=== PATIENT | female | born 1940 | race Caucasian/White ===

== ENCOUNTER → 2018-04-13 09:22 | Outpatient (CLI) | payer OTHER, SELFPAY ==
[2018-04-13 10:19] LABS: Hematocrit 42.3 % (36-46); Hemoglobin 14.2 g/dL (12.0-16.0); Mean Corpuscular HGB Conc 33.6 % (30-36); Mean Corpuscular Hemoglobin 27.7 PG (26-34); Mean Corpuscular Volume 82.3 fL (80-100); Platelet Count 273 X10^3/uL (150-400); Red Blood Cell Count 5.14 X10^6/uL (4.0-5.2); Red Cell Distribution Width 14.7 % (11.6-14.8); White Blood Cell Count 8.7 X10^3/uL (4.5-11.0)
[2018-04-13 10:47] LABS: Alanine Aminotransferase 24 IU/L (9-52); Albumin 4.2 g/dL (3.5-5.0); Albumin Globulin Ratio 1.4 (1.0-2.8); Alkaline Phosphatase 87 U/L (38-126); Aspartate Aminotransferase 22 IU/L (14-36); BUN Creatinine Ratio 14.4 (6-22); Bilirubin Total 0.5 mg/dL (0.2-1.3); Blood Urea Nitrogen 13 mg/dL (7-17); Calcium 9.7 mg/dL (8.4-10.2); Carbon Dioxide 27 mmol/L (22-32); Chloride 107 mmol/L (98-107); Cholesterol 163 mg/dL (140-199); Estimated Glomerular Filt Rate > 60.0 mL/min (>60); Globulin 3.1 g/dL (1.7-4.1); Glucose 109 mg/dL (80-110); HDL Cholesterol 48 mg/dL (40-60); HEMOLYSIS < 15 (0-50); LDL Cholesterol Calculated 81 mg/dL (<100); Sodium 146 mmol/L (137-145); Total Protein 7.3 g/dL (6.3-8.2); Triglycerides 172 mg/dL (35-150)
[2018-04-13 11:05] LABS: Neutrophils Absolute Manual 5829 /uL (3000-5900); RBC Morphology Normal Morphology; Total Cells Counted 100
[2018-04-13 11:10] LABS: Thyroid Stimulating Hormone 2.24 uIU/mL (0.47-4.68)
[2018-04-13 16:33] LABS: Creatinine Urine Random 186.9 mg/dL
[2018-04-13 16:37] LABS: Microalbumi Creatinin Ratio Ur 10.1 ug/mg CR (<30); Microalbumin Urine Random 1.9 mg/dL (0-1.6)
== END ==
PROVIDERS: PCP Family Medicine; Visit Provider Family Medicine
DX: E78.5 Hyperlipidemia, unspecified (principal); I10 Essential (primary) hypertension; J44.9 Chronic obstructive pulmonary disease, unspecified
CPT/HCPCS: 36415; 80053; 80061; 82043; 82570; 84443; 85025

== ENCOUNTER → 2018-07-20 11:53 | Outpatient (CLI) | payer OTHER, SELFPAY ==
[2018-07-20 13:49] LABS: Vitamin B12 652 pg/mL (239-931)
== END ==
PROVIDERS: PCP Family Medicine; Visit Provider Family Medicine
DX: R20.2 Paresthesia of skin (principal)
CPT/HCPCS: 36415; 82607

== ENCOUNTER → 2018-08-28 10:37 | Outpatient (CLI) | payer OTHER, SELFPAY ==
--- NOTE | 2018-08-28 10:40 | DI.MG.S_ITS ---
BILATERAL DIGITAL SCREENING MAMMOGRAM 3D/2D WITH CAD: 08/28/2018 CLINICAL: Baseline exam. Routine screening. No prior exams were available for comparison. The tissue of both breasts is predominantly fatty. Current study was also evaluated with a Computer Aided Detection (CAD) system. No significant masses, calcifications, or other findings are seen in either breast. IMPRESSION: NEGATIVE There is no mammographic evidence of malignancy. A 1 year screening mammogram is recommended. This exam was interpreted at Station ID: [id number]. NOTE: For mammograms, a report in lay terms will be sent to the patient. Approximately 15% of breast malignancies will not be visualized mammographically. In the management of a palpable breast mass, a negative mammogram must not discourage biopsy of a clinically suspicious lesion. Electronically Signed By: Sepideh worley/armen:08/28/2018 12:07:50 letter sent: Normal Exam ACR BI-RADS Category 1: Negative [id number]
== END ==
PROVIDERS: PCP Family Medicine; Visit Provider Family Medicine
DX: Z12.31 Encounter for screening mammogram for malignant neoplasm of breast (principal)
CPT/HCPCS: 77063; 77067

== ENCOUNTER → 2018-11-05 08:28 | Outpatient (CLI) | payer OTHER, SELFPAY ==
--- NOTE | 2018-11-05 | DI.MRI.S_ITS ---
PROCEDURE: MR LUMBAR SPINE WO CON INDICATIONS: Radiculopathy, lumbar region TECHNIQUE: Noncontrast sagittal T1 spin echo and T2 fast echo, sagittal STIR, axial T1 and T2 fast spin echo through the lumbar spine. In cases with scoliosis, additional coronal T2 fast spin echo may be performed. COMPARISON: None. FINDINGS: Image quality: Excellent. Alignment and Curvature: There is trace L1-L2 retrolisthesis. There is trace L3-L4 anterolisthesis. Bones: Postsurgical changes compatible with L3-L4 posterior and interbody fusion noted. Postsurgical changes compatible with L2 laminectomy noted. No acute vertebral body compression fractures. Spinal Cord: Conus medullaris terminates at the T12 level. Visualized cord demonstrates normal signal and size. Paraspinous Soft Tissues: No paravertebral masses. L1-L2: Loss of disc signal and height. Moderate, diffuse disc bulge. Mild bilateral facet hypertrophy. Mild narrowing of the central canal. Moderate to severe right and moderate left neural foraminal narrowing with slight compression of the exiting right L1 nerve root. L2-L3: Loss of disc signal and height. Moderate, diffuse disc bulge. Moderate bilateral facet hypertrophy. Mild to moderate narrowing of the central canal. Severe bilateral neural foraminal narrowing with compression of the exiting L2 nerve roots. L3-L4: Status post fusion. Moderate bilateral facet hypertrophy. Mild narrowing of central canal. Moderate bilateral neural foraminal narrowing. No neural impingement. L4-L5: Loss of disc signal. Mild, diffuse disc bulge. Moderate bilateral facet hypertrophy. There is a 1.0 x 1.1 x 1.9 cm synovial cyst projecting off the medial margin of the right L4-L5 facet which impinges on the traversing right L5 nerve root. Moderate narrowing of the central canal. Moderate bilateral neural foraminal narrowing. L5-S1: Loss of disc signal and height. Mild diffuse disc bulge. Mild right and moderate left facet hypertrophy. No central stenosis. Moderate bilateral neural foraminal narrowing. No neural impingement. IMPRESSION: 1. Postsurgical changes. 2. Multilevel degenerative disease 3. Multilevel facet arthropathy. 4. Large right L4-L5 facet synovial cyst which impinges upon the right L5 nerve root. Please correlate with clinical data. 5. Moderate L4-L5 central canal narrowing. Mild to moderate L2-L3 central canal narrowing. Mild L1-L2 and L3-L4 central canal narrowing. 6. Severe bilateral L2-L3 neural foraminal narrowing. Moderate to severe right and moderate left L1-L2 neural foraminal narrowing. Moderate bilateral L3-L4, L4-L5 and L5-S1 neural foraminal narrowing. 7. Compression of the exiting right L1 nerve root and the exiting bilateral L2 nerve roots secondary to neural foraminal narrowing. Please correlate clinically. Dictated by: Connie Montelongo MD, PhD on 11/05/2018 at 10:44 Approved by: Connie Montelongo MD, PhD on 11/05/2018 at 10:51
== END ==
PROVIDERS: PCP Family Medicine; Visit Provider Physical Medicine & Rehabilitation
DX: M51.16 Intervertebral disc disorders with radiculopathy, lumbar region (principal); M51.17 Intervertebral disc disorders with radiculopathy, lumbosacral region; M48.061 Spinal stenosis, lumbar region without neurogenic claudication; M48.07 Spinal stenosis, lumbosacral region; M47.26 Other spondylosis with radiculopathy, lumbar region; M47.27 Other spondylosis with radiculopathy, lumbosacral region; Z98.1 Arthrodesis status
CPT/HCPCS: 72148

== ENCOUNTER → 2019-02-12 07:40 | Outpatient (CLI) | payer OTHER, SELFPAY ==
[2019-02-12 08:10] LABS: Add Manual Diff / Slide Review NO; Basophils Absolute Auto 100 /uL (0-100); Basophils Percent Auto 0.8 % (0-2); Eosinophils Absolute Auto 200 /uL (0-450); Eosinophils Percent Auto 2.3 % (2-4); Hematocrit 42.3 % (36-46); Hemoglobin 14.1 g/dL (12.0-16.0); Lymphocytes Absolute Auto 1900 /uL (1100-4500); Lymphocytes Percent Auto 25.5 % (25-40); Mean Corpuscular HGB Conc 33.2 % (30-36); Mean Corpuscular Hemoglobin 28.4 PG (26-34); Mean Corpuscular Volume 85.4 fL (80-100); Monocytes Absolute Auto 500 /uL (0-900); Monocytes Percent Auto 6.8 % (3-14); Neutrophils Absolute Auto 4900 /uL (1500-7000); Neutrophils Percent Auto 64.6 % (50-75); Platelet Count 293 X10^3/uL (150-400); Red Blood Cell Count 4.96 X10^6/uL (4.0-5.2); Red Cell Distribution Width 13.6 % (11.6-14.8); White Blood Cell Count 7.6 X10^3/uL (4.5-11.0)
[2019-02-12 08:36] LABS: Alanine Aminotransferase 25 IU/L (9-52); Albumin 4.1 g/dL (3.5-5.0); Albumin Globulin Ratio 1.4 (1.0-2.8); Alkaline Phosphatase 96 U/L (38-126); Aspartate Aminotransferase 23 IU/L (14-36); BUN Creatinine Ratio 26.3 (6-22); Bilirubin Total 0.5 mg/dL (0.2-1.3); Blood Urea Nitrogen 21 mg/dL (7-17); Calcium 10.2 mg/dL (8.4-10.2); Carbon Dioxide 29 mmol/L (22-32); Chloride 106 mmol/L (98-107); Cholesterol 159 mg/dL (140-199); Estimated Glomerular Filt Rate > 60.0 mL/min (>60); Globulin 2.9 g/dL (1.7-4.1); Glucose 115 mg/dL (80-110); HDL Cholesterol 56 mg/dL (40-60); HEMOLYSIS < 15 (0-50); LDL Cholesterol Calculated 66 mg/dL (<100); Potassium 4.3 mmol/L (3.4-5.1); Sodium 141 mmol/L (137-145); Triglycerides 183 mg/dL (35-150)
[2019-02-12 09:07] LABS: TSH w/ Reflex to FT4 2.18 uIU/mL (0.47-4.68)
== END ==
PROVIDERS: PCP Family Medicine; Visit Provider Family Medicine
DX: E78.5 Hyperlipidemia, unspecified (principal); R53.83 Other fatigue
CPT/HCPCS: 36415; 80053; 80061; 84443; 85025

== ENCOUNTER → 2021-03-19 15:32 | Outpatient (CLI) | payer OTHER, SELFPAY ==
--- NOTE | 2021-03-19 15:35 | DI.RAD.S_ITS ---
PROCEDURE: XR KNEE LT 3V INDICATIONS: Left knee pain TECHNIQUE: 3 views of the knee were acquired. COMPARISON: None. FINDINGS: Moderate to severe osteoarthritic changes in all 3 compartments of the knee, worst in the lateral femorotibial compartment and in the patellofemoral compartment. There is a moderate-sized knee joint effusion. IMPRESSION: Moderate to severe osteoarthritis with a moderate knee joint effusion. Dictated by: Chester Mina M.D. on 03/19/2021 at 16:26 Approved by: Chester Mina M.D. on 03/19/2021 at 16:28
== END ==
PROVIDERS: PCP Family Medicine; Referring Provider Family Medicine; Visit Provider Family Medicine
DX: M25.562 Pain in left knee (principal); M17.12 Unilateral primary osteoarthritis, left knee; M25.462 Effusion, left knee
CPT/HCPCS: 73562

== ENCOUNTER → 2021-04-13 10:10 | Outpatient (CLI) | payer OTHER, SELFPAY ==
[2021-04-13 10:49] LABS: Add Manual Diff / Slide Review NO; Basophils Absolute Auto 0 /uL (0-100); Basophils Percent Auto 0.6 % (0-2); Eosinophils Absolute Auto 200 /uL (0-450); Eosinophils Percent Auto 2.8 % (2-4); Hematocrit 36.2 % (36-46); Hemoglobin 11.7 g/dL (12.0-16.0); Lymphocytes Absolute Auto 2000 /uL (1100-4500); Lymphocytes Percent Auto 29.8 % (25-40); Mean Corpuscular HGB Conc 32.4 % (30-36); Mean Corpuscular Hemoglobin 27.8 PG (26-34); Mean Corpuscular Volume 85.7 fL (80-100); Monocytes Absolute Auto 100 /uL (0-900); Neutrophils Absolute Auto 4400 /uL (1500-7000); Neutrophils Percent Auto 64.8 % (50-75); Platelet Count 285 X10^3/uL (150-400); Red Blood Cell Count 4.22 X10^6/uL (4.0-5.2); Red Cell Distribution Width 15.8 % (11.6-14.8); White Blood Cell Count 6.7 X10^3/uL (4.5-11.0)
[2021-04-13 10:50] LABS: Hemoglobin A1C% w Est Avg Glu 5.3 % (4.0-6.0)
[2021-04-13 11:13] LABS: BUN Creatinine Ratio 28.1 (6-22); Blood Urea Nitrogen 25 mg/dL (7-17); Calcium 10.4 mg/dL (8.4-10.2); Carbon Dioxide 29 mmol/L (22-32); Chloride 107 mmol/L (98-107); Estimated Glomerular Filt Rate > 60.0 mL/min (>60); Glucose 105 mg/dL (80-110); HEMOLYSIS < 15 (0-50); Potassium 4.2 mmol/L (3.4-5.1); Sodium 142 mmol/L (137-145)
[2021-04-13 12:05] LABS: Appearance Urine UA CLOUDY; Bilirubin Urine UA NEGATIVE (NEGATIVE); Color Urine UA YELLOW; Glucose Urine UA NEGATIVE (Negative); Ketones Urine UA NEGATIVE (NEGATIVE); Leukocyte Esterase Urine UA 3+ (NEGATIVE); Nitrite Urine UA POSITIVE (Negative); Occult Blood Urine UA TRACE-INTACT (Negative); Protein Urine UA TRACE (Negative); Urobilinogen Urine UA 0.2 E.U./dL (0.2)
[2021-04-13 12:06] LABS: pH Urine UA 5.5 (4.5-8.0)
[2021-04-13 12:11] LABS: Amorphous Sediment Urine 1+; Bacteria Urine Many (>30); Culture Indicated Urine Specimen Cultured; RBC Urine 0-1/HPF (0-5/HPF); Squamous Epithelial Cell Urine 1-5 /HPF (0-5/HPF); WBC Urine >100/HPF (0-5/HPF)
== END ==
PROVIDERS: PCP Family Medicine; Referring Provider Orthopaedic Surgery; Visit Provider Orthopaedic Surgery
DX: Z01.818 Encounter for other preprocedural examination (principal); R73.9 Hyperglycemia, unspecified; Z01.812 Encounter for preprocedural laboratory examination; R39.0 Extravasation of urine
CPT/HCPCS: 36415; 80048; 81001; 83036; 85025; 87077; 87086; 87186; 93005

== ENCOUNTER 2021-05-26 20:39 | Emergency (ER) | payer OTHER, SELFPAY ==
[2021-05-26] VITALS (12 sets, daily range): BP systolic 142–196; BP diastolic 63–81; PULSE 72–80; RESP 16–27; TEMP 36.5; O2SAT 88–100; BMI 35.2
--- NOTE | 2021-05-26 20:57 | ED_ITS ---
HPI - General Adult General Chief complaint: Shortness of Breath/Dyspnea Stated complaint: Chest Congestion, weakness Time Seen by Provider: 05/26/21 20:57 Source: patient, family and EMS Mode of arrival: EMS Limitations: no limitations History of Present Illness HPI narrative: 80-year-old lady with history of COPD not on home oxygen, osteoarthritis, depression, hypertension, hyperlipidemia who presents with 7 days of general malaise, cough with increasing dyspnea and generalized chest discomfort secondary to the persistent cough. She describes low-grade fevers, mild myalgias. Her daughter, with whom she lives, had similar symptoms that are now resolving. Both mother and daughter are vaccinated for Covid19. She describes some mild abdominal pain, mild nausea but no vomiting. No constipation or diarrhea. She is not complaining of palpitations. She has no skin changes Related Data Home Medications Medication Instructions Recorded Confirmed furosemide 20 mg tablet 20 mg PO DAILY 03/19/21 05/26/21 sertraline 100 mg tablet 25 mg PO DAILY 03/19/21 05/26/21 amlodipine 5 mg tablet 5 mg PO BEDTIME 05/22/21 05/26/21 duloxetine 20 mg capsule,delayed 60 mg PO QAM 05/22/21 05/26/21 release folic acid 1 mg tablet 1 mg PO DAILY 05/22/21 05/26/21 gabapentin 800 mg tablet 800 mg PO BID 05/22/21 05/26/21 ibuprofen 200 mg tablet (Advil) 400 mg PO BID-TID PRN 05/22/21 05/26/21 methotrexate sodium 2.5 mg tablet 20 mg PO QWEEK 05/22/21 05/26/21 vit C 250 mg-vit E 90 mg-zinc 40 1 tab PO QAM 05/22/21 05/26/21 mg-copper 1 [id number] capsule (PreserVision AREDS-2) Previous Rx's Medication Instructions Recorded Disabled Parking #1 ea 11/23/18 atorvastatin 10 mg tablet (Lipitor) 10 mg PO HS #90 tab 04/12/19 lisinopril 40 mg tablet 40 mg PO QDAY #90 tab 04/21/19 Allergies Allergy/AdvReac Type Severity Reaction Status Date / Time codeine [CODEINE] Allergy Intermediate Hives, Unverified 05/22/21 13:12 swelling Penicillins [PENICILLINS] Allergy Intermediate Hives, Unverified 05/22/21 13:12 swelling Sulfa (Sulfonamide AdvReac Intermediate Gastrointestinal Unverified 05/22/21 13:12 Antibiotics) Upset [SULFA (SULFONAMIDE ANTIBIOTICS)] Review of Systems Review of Systems Narrative: Remainder of complete review of systems is otherwise unremarkable except for that included in the HPI. Patient History Medical History COPD (chronic obstructive pulmonary disease) (2015) CTS (carpal tunnel syndrome) (1988) Fractures (2014) Glaucoma (2013) Hayfever (1999) Morbid (severe) obesity due to excess calories Osteoarthritis Retinal detachment (2013) Surgical History Anesthesia History of carpal tunnel repair (1989) History of hip replacement (2003) History of hip replacement (2006) History of hip replacement (2010) History of spinal surgery (2015) History of spinal surgery (2005) Hx of bilateral cataract extraction Status post knee surgery (2003) Status post laminectomy (2005) Family History Brother No problems noted. Brother No problems noted. Father Lung cancer Grandfather No problems noted. Grandmother Heart attack Mother Lung cancer Grandfather No problems noted. Grandmother Heart attack Social History household members: children Smoking Status: Former smoker alcohol intake: current Smoking Status: Former smoker alcohol intake frequency: holidays/special occasions only Substance Use Type: does not use Exam Narrative Exam Narrative: General: Chronically ill-appearing but in no acute distress. Able to give a complete history. Able to speak in full sentences with nasal cannula oxygen at 7 L. HEENT: Moist mucous membranes, normal sclera with reactive pupils, Neck: No JVD, supple Respiratory: Lungs bilateral mild wheeze in all lung jules with no rales no rhonchi. Full and symmetrical air movement Cardiac: Mild tachycardia but otherwise regular rhythm no murmurs no bruits Abdomen: Soft, nontender, good bowel tones, no flank pain Skin: Pale but otherwise Warm and dry, no rashes Neurologic: Globally weak, Grossly neurologically intact with no obvious asymmetries or abnormalities Extremities: No trauma, well perfused Psych: Cooperative, appropriate insight and affect Initial Vital Signs Initial Vital Signs: Vital Signs Temperature 97.7 F 05/26/21 20:50 Pulse Rate 78 05/26/21 20:50 Respiratory Rate 20 05/26/21 20:50 Blood Pressure 142/63 H 05/26/21 20:50 Pulse Oximetry 88 L 05/26/21 20:50 Course Orders Ordered: ED Orders 05/26/21 20:43 COVID19 -Nasal swab/Pre-Proc Stat 05/26/21 20:58 XR chest 1V Stat EKG-12 Lead Stat 05/26/21 21:25 Complete Blood Count AUTO DIFF Stat Comprehensive Metabolic Panel Stat Lactate (Lactic Acid) Stat Lipase Stat Magnesium Stat NT-proBNP (BNP-Adult 18+) Stat Respiratory Panel (Film Array) Stat Troponin I Stat 05/26/21 21:50 Blood Culture Stat 05/26/21 22:00 High flow/High humidity nasal NOW 05/26/21 22:40 Urinalysis and Microscopic Stat Urine Culture Stat Discontinued Medications Acetaminophen (Acetaminophen 325 Mg Tablet) 975 mg PO NOW ONE Stop: 05/26/21 22:32 Last Admin: 05/26/21 22:46 Dose: 975 mg Documented by: PITA Dexamethasone (Dexamethasone 10 Mg/Ml Vial) 6 mg IV NOW ONE Stop: 05/26/21 23:24 Last Admin: 05/26/21 23:48 Dose: 6 mg Documented by: PITA Sodium Chloride (Normal Saline 0.9%) 1,000 mls @ 1,000 mls/hr IV BOLUS ONE Stop: 05/26/21 21:57 Last Infusion: 05/26/21 22:47 Dose: 0 mls/hr Documented by: Admin: 05/26/21 21:15 Dose: 1,000 mls/hr Documented by: PITA POTASSIUM CHLORIDE IN WATER (Potassium Cl 10 Meq/100 Ml Verena) 10 meq in 100 mls @ 100 mls/hr IV Q1H DARCI Stop: 05/27/21 02:44 Last Infusion: 05/27/21 01:58 Dose: 0 mls/hr Documented by: Admin: 05/27/21 00:58 Dose: 100 mls/hr Documented by: Infusion: 05/27/21 00:56 Dose: 0 mls/hr Documented by: Admin: 05/26/21 23:11 Dose: 100 mls/hr Documented by: PITA Ondansetron HCl (Ondansetron 4 Mg/2 Ml Inj) 4 mg IV NOW ONE Stop: 05/26/21 20:59 Last Admin: 05/26/21 21:15 Dose: 4 mg Documented by: PITA Potassium Chloride (Potassium Chloride 20 Meq Tab) 40 meq PO NOW ONE Stop: 05/26/21 22:32 Last Admin: 05/26/21 23:10 Dose: 40 meq Documented by: PITA Vital Signs Vital signs: Vital Signs - 8 hr 05/26/21 20:50 05/26/21 20:51 05/26/21 21:00 Temperature 97.7 F Pulse Rate 78 78 80 Respiratory Rate 20 Blood Pressure 142/63 H 156/68 H Pulse Oximetry 88 L 91 92 05/26/21 21:30 05/26/21 22:00 05/26/21 22:01 Temperature Pulse Rate 74 76 75 Respiratory Rate 27 H 19 26 H Blood Pressure 163/72 H 167/73 H 196/81 H Pulse Oximetry 95 94 100 05/26/21 22:37 05/26/21 22:38 05/26/21 23:00 Temperature Pulse Rate 77 76 72 Respiratory Rate 19 21 Blood Pressure 167/73 H Pulse Oximetry 92 94 99 05/26/21 23:01 05/26/21 23:30 05/26/21 23:31 Temperature Pulse Rate 72 72 72 Respiratory Rate 16 21 22 Blood Pressure 185/72 H 192/76 H Pulse Oximetry 99 99 99 05/27/21 00:00 05/27/21 00:01 05/27/21 00:30 Temperature Pulse Rate 73 73 71 Respiratory Rate 18 19 16 Blood Pressure 162/69 H 180/79 H Pulse Oximetry 100 99 99 05/27/21 00:47 05/27/21 00:48 05/27/21 01:00 Temperature Pulse Rate 73 73 70 Respiratory Rate 19 19 19 Blood Pressure 162/69 H 162/69 H Pulse Oximetry 99 99 99 Medical Decision Making Lab Data Result diagrams: 05/26/21 21:25 05/26/21 21:25 Labs: Lab Results 05/26/21 05/26/21 05/26/21 Range/Units 20:43 21:25 21:25 WBC 8.6 (4.5-11.0) X10^3/uL RBC 3.80 L (4.0-5.2) X10^6/uL Hgb 10.6 L (12.0-16.0) g/dL Hct 31.9 L (36-46) % MCV 84.0 (80-100) fL MCH 27.9 (26-34) PG MCHC 33.2 (30-36) % RDW 19.6 H (11.6-14.8) % Plt Count 397 (150-400) X10^3/uL Neut % (Auto) 69.9 (50-75) % Lymph % (Auto) 18.4 L (25-40) % Mclean % (Auto) 11.3 (3-14) % Eos % (Auto) 0.0 L (2-4) % Baso % (Auto) 0.4 (0-2) % Neut # (Auto) 6000 (1718-6178) /uL Lymph # (Auto) 1600 (1972-8590) /uL Mclean # (Auto) 1000 H (0-900) /uL Eos # (Auto) 0 (0-450) /uL Baso # (Auto) 0 (0-100) /uL Sodium 133 L (137-145) mmol/L Potassium 2.6 L* (3.4-5.1) mmol/L Chloride 98 (98-107) mmol/L Carbon Dioxide 29 (22-32) mmol/L BUN 16 (7-17) mg/dL Creatinine 0.85 (0.52-1.04) mg/dL Estimated GFR > 60.0 (>60) mL/min BUN/Creatinine Ratio 18.8 (6-22) Glucose 115 H (80-110) mg/dL Lactate (0.7-2.1) mmol/L Calcium 9.2 (8.4-10.2) mg/dL Magnesium 2.0 (1.6-2.3) mg/dL Total Bilirubin 0.4 (0.2-1.3) mg/dL AST 43 H (14-36) IU/L ALT 32 (<35) IU/L Alkaline Phosphatase 71 (38-126) U/L Troponin I 0.029 (0.01-0.034) ng/mL NT-Pro-B Natriuret Pep 234 (<450) pg/mL Total Protein 6.4 (6.3-8.2) g/dL Albumin 3.5 (3.5-5.0) g/dL Globulin 2.9 (1.7-4.1) g/dL Albumin/Globulin Ratio 1.2 (1.0-2.8) Lipase 79 (23-300) U/L Urine Color Urine Appearance Urine pH (4.5-8.0) Ur Specific [place] (1.000-1.035) Urine Protein (Negative) Urine Glucose (UA) (Negative) g/dL Urine Ketones (NEGATIVE) Urine Occult Blood (Negative) Urine Nitrate (Negative) Urine Bilirubin (NEGATIVE) Urine Urobilinogen (0.2) E.U./dL Ur Leukocyte Esterase (NEGATIVE) Urine RBC (0-5/HPF) Urine WBC (0-5/HPF) Ur Squamous Epith Cells (0-5/HPF) Ur Renal Epithelial Cell (0-1/HPF) Urine Bacteria (None) Ur Culture Indicated? Chlamy pneumoniae PCR (Not Detect) Adenovirus (PCR) (Not Detect) B. pertussis DNA (PCR) (Not Detecte) B.parapertussis DNA PCR (Not Detecte) Coronavirus OC43 (PCR) (Not Detect) Coronavirus HKU1 (PCR) (Not Detect) Coronavirus 229E (PCR) (Not Detect) SARS-CoV-2 (PCR) Positive H (Negative) Coronavirus NL63 (PCR) (Not Detect) Human Metapneumovir PCR (Not Detect) Influenza Type A (PCR) (Not Detect) Influenza Type B (PCR) (Not Detect) M. pneumoniae (PCR) (Not Detect) Parainfluenza 1 (PCR) (Not Detect) Parainfluenza 2 (PCR) (Not Detect) Parainfluenza 3 (PCR) (Not Detect) Parainfluenza 4 (PCR) (Not Detect) RSV (PCR) (Not Detect) Entero/Rhino (PCR) (Not Detect) 05/26/21 05/26/21 05/26/21 Range/Units 21:25 21:25 22:40 WBC (4.5-11.0) X10^3/uL RBC (4.0-5.2) X10^6/uL Hgb (12.0-16.0) g/dL Hct (36-46) % MCV (80-100) fL MCH (26-34) PG MCHC (30-36) % RDW (11.6-14.8) % Plt Count (150-400) X10^3/uL Neut % (Auto) (50-75) % Lymph % (Auto) (25-40) % Mclean % (Auto) (3-14) % Eos % (Auto) (2-4) % Baso % (Auto) (0-2) % Neut # (Auto) (4470-3996) /uL Lymph # (Auto) (8744-5702) /uL Mclean # (Auto) (0-900) /uL Eos # (Auto) (0-450) /uL Baso # (Auto) (0-100) /uL Sodium (137-145) mmol/L Potassium (3.4-5.1) mmol/L Chloride (98-107) mmol/L Carbon Dioxide (22-32) mmol/L BUN (7-17) mg/dL Creatinine (0.52-1.04) mg/dL Estimated GFR (>60) mL/min BUN/Creatinine Ratio (6-22) Glucose (80-110) mg/dL Lactate 1.4 (0.7-2.1) mmol/L Calcium (8.4-10.2) mg/dL Magnesium (1.6-2.3) mg/dL Total Bilirubin (0.2-1.3) mg/dL AST (14-36) IU/L ALT (<35) IU/L Alkaline Phosphatase (38-126) U/L Troponin I (0.01-0.034) ng/mL NT-Pro-B Natriuret Pep (<450) pg/mL Total Protein (6.3-8.2) g/dL Albumin (3.5-5.0) g/dL Globulin (1.7-4.1) g/dL Albumin/Globulin Ratio (1.0-2.8) Lipase (23-300) U/L Urine Color Yellow Urine Appearance Slightly cloudy Urine pH 6.5 (4.5-8.0) Ur Specific [place] 1.015 (1.000-1.035) Urine Protein 1+ H (Negative) Urine Glucose (UA) Negative (Negative) g/dL Urine Ketones Negative (NEGATIVE) Urine Occult Blood Trace-lysed (Negative) Urine Nitrate Positive H (Negative) Urine Bilirubin Negative (NEGATIVE) Urine Urobilinogen 1.0 (0.2) E.U./dL Ur Leukocyte Esterase Trace H (NEGATIVE) Urine RBC None seen (0-5/HPF) Urine WBC 5-10/hpf H (0-5/HPF) Ur Squamous Epith Cells 1-5 /hpf (0-5/HPF) Ur Renal Epithelial Cell 0-1/hpf (0-1/HPF) Urine Bacteria Many (>30) H (None) Ur Culture Indicated? Specimen cultured Chlamy pneumoniae PCR Not detected (Not Detect) Adenovirus (PCR) Not detected (Not Detect) B. pertussis DNA (PCR) Not detected (Not Detecte) B.parapertussis DNA PCR Not detected (Not Detecte) Coronavirus OC43 (PCR) Not detected (Not Detect) Coronavirus HKU1 (PCR) Not detected (Not Detect) Coronavirus 229E (PCR) Not detected (Not Detect) SARS-CoV-2 (PCR) Detected H (Negative) Coronavirus NL63 (PCR) Not detected (Not Detect) Human Metapneumovir PCR Not detected (Not Detect) Influenza Type A (PCR) Not detected (Not Detect) Influenza Type B (PCR) Not detected (Not Detect) M. pneumoniae (PCR) Not detected (Not Detect) Parainfluenza 1 (PCR) Not detected (Not Detect) Parainfluenza 2 (PCR) Not detected (Not Detect) Parainfluenza 3 (PCR) Not detected (Not Detect) Parainfluenza 4 (PCR) Not detected (Not Detect) RSV (PCR) Not detected (Not Detect) Entero/Rhino (PCR) Not detected (Not Detect) Imaging Data Chest x-ray: Radiologist's Impression: FINDINGS:? ? Surgical changes and devices:? None.? ? Lungs and pleura:? Diffuse patchy bilateral airspace opacities are seen.? No definite pleural effusion or pneumothorax. ? Mediastinum:? Mediastinal contours appear normal.? Heart size is normal.? Mild aortic atherosclerotic calcifications. ? Bones and chest wall:? No suspicious bony lesions.? Overlying soft tissues appear unremarkable.? ? IMPRESSION:? Diffuse bilateral airspace opacities are suspicious for pneumonia, including with viral agents such as COVID-19. ? ? Dictated by: Gunner García M.D. on 05/26/2021 at 21:26 ? ? ECG Data Interpretation: Sinus rhythm at a rate of 78 No acute ischemic changes Normal intervals, normal axis MDM Narrative Medical decision making narrative: 80-year-old woman on day 7 of COVID, she is vaccinated. Increasing tachypnea and tachycardia. Oxygen saturations were in the 85-88% range on room air. To the low 90s on 5 L mid 90s on 7 L however still quite tachypneic and tachycardic. She was started on high-flow oxygen and both tachypnea and tachycardia have improved. She does complain about the flow rate at the back of her nose and we have given her some Tylenol. Currently no evidence for bacterial superinfection, congestive heart failure, acute coronary syndrome or surgical abdomen. She will need ICU admission given her high-flow oxygen. She is an excellent candidate for both Decadron and remde sivir. Labs indicate a potassium of 2.6. She is given oral 40 mEqpotassium as well as IV 40 mEq potassium in the emergency department. 11pm care is reviewed with hospital doctor, Julisa Griffiths at [facility] in [place]. They do have an ICU bed available and we will anticipate transfer. At this point waiting to hear from housekeeper supervisor for specific details. 1124 bed is available. ALS transport is being arranged. Will go ahead and start a 2nd IV. She is given 6 mg of IV Decadron in the emergency department but will hold off on remdesivir for the receiving hospital. Findings and expected transfer are reviewed with patient and her daughter. Questions are answered. She is stable for transfer at this time Discharge Plan Departure Patient Disposition: [facility] Clinical Impression: Pneumonia due to 2019 novel coronavirus, Hypokalemia Respiratory failure with hypoxia Qualifiers: Chronicity: acute Qualified Code(s): J96.01 - Acute respiratory failure with hypoxia Prescriptions: No Action furosemide 20 mg tablet 20 mg PO DAILY 0RF Label Comments: Pt takes at bedtime sertraline 100 mg tablet 25 mg PO DAILY 0RF (DME) Disabled Parking Qty: 1 0RF Dose Instruction: As directed Rx Instructions: I find this patient to be medically disabled and qualified for Disabled Parking as indicated, and signed, on the Accompanying Disabled Parking Application for Individuals atorvastatin [Lipitor] 10 mg tablet 10 mg PO HS Qty: 90 2RF Hold Instructions: taking Anti-fungal medication lisinopril 40 mg tablet 40 mg PO QDAY Qty: 90 2RF amlodipine 5 mg Tablet 5 mg PO BEDTIME 0RF methotrexate sodium 2.5 mg Tablet 20 mg PO QWEEK 0RF Label Comments: 10mg bid on Friday gabapentin 800 mg Tablet 800 mg PO BID 0RF ibuprofen [Advil] 200 mg Tablet 400 mg PO BID-TID PRN (Reason: Pain) 0RF folic acid 1 mg Tablet 1 mg PO DAILY 0RF PreserVision AREDS-2 250-90-40-1 mg Capsule 1 tab PO QAM 0RF duloxetine 20 mg capsule,delayed release(DR/EC) 60 mg PO QAM 0RF Referrals: Jordyn Montemayor MD [Primary Care Provider] -
--- NOTE | 2021-05-26 20:58 | DI.RAD.S_ITS ---
PROCEDURE: XR CHEST 1V INDICATIONS: dyspnea TECHNIQUE: One view of the chest was acquired. COMPARISON: None. FINDINGS: Surgical changes and devices: None. Lungs and pleura: Diffuse patchy bilateral airspace opacities are seen. No definite pleural effusion or pneumothorax. Mediastinum: Mediastinal contours appear normal. Heart size is normal. Mild aortic atherosclerotic calcifications. Bones and chest wall: No suspicious bony lesions. Overlying soft tissues appear unremarkable. IMPRESSION: Diffuse bilateral airspace opacities are suspicious for pneumonia, including with viral agents such as COVID-19. Dictated by: Gunner García M.D. on 05/26/2021 at 21:26 Approved by: Gunner García M.D. on 05/26/2021 at 21:28
[2021-05-26 21:15] LABS: COVID19 -Nasal RAPID POSITIVE (Negative)
[2021-05-26] MEDS: SODIUM CHLORIDE 0.9% 1,000 ML 1000 ML IV (21:15)
[2021-05-26] MEDS: ONDANSETRON 4 MG/2 ML INJ IV (21:15)
[2021-05-26 21:35] LABS: Add Manual Diff / Slide Review NO; Basophils Absolute Auto 0 /uL (0-100); Basophils Percent Auto 0.4 % (0-2); Eosinophils Absolute Auto 0 /uL (0-450); Hematocrit 31.9 % (36-46); Hemoglobin 10.6 g/dL (12.0-16.0); Lymphocytes Absolute Auto 1600 /uL (1100-4500); Lymphocytes Percent Auto 18.4 % (25-40); Mean Corpuscular HGB Conc 33.2 % (30-36); Mean Corpuscular Hemoglobin 27.9 PG (26-34); Monocytes Absolute Auto 1000 /uL (0-900); Monocytes Percent Auto 11.3 % (3-14); Neutrophils Absolute Auto 6000 /uL (1500-7000); Neutrophils Percent Auto 69.9 % (50-75); Platelet Count 397 X10^3/uL (150-400); Red Cell Distribution Width 19.6 % (11.6-14.8); White Blood Cell Count 8.6 X10^3/uL (4.5-11.0)
[2021-05-26 21:42] LABS: Lactate (Lactic Acid) 1.4 mmol/L (0.7-2.1)
[2021-05-26 21:44] LABS: Alanine Aminotransferase 32 IU/L (<35); Albumin 3.5 g/dL (3.5-5.0); Albumin Globulin Ratio 1.2 (1.0-2.8); Alkaline Phosphatase 71 U/L (38-126); Aspartate Aminotransferase 43 IU/L (14-36); BUN Creatinine Ratio 18.8 (6-22); Bilirubin Total 0.4 mg/dL (0.2-1.3); Blood Urea Nitrogen 16 mg/dL (7-17); Calcium 9.2 mg/dL (8.4-10.2); Carbon Dioxide 29 mmol/L (22-32); Chloride 98 mmol/L (98-107); Estimated Glomerular Filt Rate > 60.0 mL/min (>60); Globulin 2.9 g/dL (1.7-4.1); Glucose 115 mg/dL (80-110); HEMOLYSIS < 15 (0-50); Lipase 79 U/L (23-300); Sodium 133 mmol/L (137-145); Total Protein 6.4 g/dL (6.3-8.2)
[2021-05-26 21:48] LABS: Potassium 2.6 mmol/L (3.4-5.1)
[2021-05-26 21:55] LABS: NT-proBNP (BNP-Adult 18+) 234 pg/mL (<450); Troponin I 0.029 ng/mL (0.01-0.034)
[2021-05-26] MEDS: ACETAMINOPHEN 325 MG TABLET 975 MG PO (22:46)
[2021-05-26] MEDS: POTASSIUM CHLORIDE 20 MEQ TAB 40 MEQ PO (23:10)
[2021-05-26 23:11] LABS: Bilirubin Urine UA NEGATIVE (NEGATIVE); Color Urine UA YELLOW; Glucose Urine UA NEGATIVE (Negative); Ketones Urine UA NEGATIVE (NEGATIVE); Leukocyte Esterase Urine UA TRACE (NEGATIVE); Nitrite Urine UA POSITIVE (Negative); Occult Blood Urine UA TRACE-LYSED (Negative); Protein Urine UA 1+ (Negative); Specific Gravity Urine UA 1.015 (1.000-1.035)
[2021-05-26] MEDS: POTASSIUM CHLORIDE IN WATER 10 MEQ/100 ML PIGGYBACK 100 MEQ IV (23:11)
[2021-05-26 23:21] LABS: Appearance Urine UA Slightly Cloudy; pH Urine UA 6.5 (4.5-8.0)
[2021-05-26 23:34] LABS: Bacteria Urine Many (>30); Culture Indicated Urine Specimen Cultured; RBC Urine None Seen (0-5/HPF); Renal Epithelial Cells Urine 0-1/HPF (0-1/HPF); Squamous Epithelial Cell Urine 1-5 /HPF (0-5/HPF); WBC Urine 5-10/HPF (0-5/HPF)
[2021-05-26] MEDS: DEXAMETHASONE 10 MG/ML VIAL 6 MG IV (23:48)
[2021-05-26 23:57] LABS: Adenovirus Not Detected (Not Detect)
[2021-05-26 23:58] LABS: Coronavirus 229E Not Detected (Not Detect); Coronavirus HKU1 Not Detected (Not Detect); Coronavirus NL 63 Not Detected (Not Detect); Coronavirus OC43 Not Detected (Not Detect); SARS- CoV-2 Detected (Not Detecte)
[2021-05-26 23:59] LABS: B. parapertussis Not Detected (Not Detecte); Bordetella pertussis Not Detected (Not Detecte); Chlamydophila pneumoniae Not Detected (Not Detect); Human Metapneumovirus Not Detected (Not Detect); Human Rhinovirus/Enterovirus Not Detected (Not Detect); Influenza A Not Detected (Not Detect); Influenza B Not Detected (Not Detect); Mycoplasma pneumoniae Not Detected (Not Detect); Parainfluenza Virus 1 Not Detected (Not Detect); Parainfluenza Virus 2 Not Detected (Not Detect); Parainfluenza Virus 3 Not Detected (Not Detect); Parainfluenza Virus 4 Not Detected (Not Detect); Respiratory Syncytial Virus Not Detected (Not Detect)
[2021-05-27] VITALS: PULSE 73; RESP 18; O2SAT 100
[2021-05-27 00:01] VITALS: BP 162/69; PULSE 73; RESP 19; O2SAT 99
[2021-05-27 00:30] VITALS: BP 180/79; PULSE 71; RESP 16; O2SAT 99
[2021-05-27 00:47] VITALS: BP 162/69; PULSE 73; RESP 19; O2SAT 99
[2021-05-27 00:48] VITALS: BP 162/69; PULSE 73; RESP 19; O2SAT 99
[2021-05-27] MEDS: POTASSIUM CHLORIDE IN WATER 10 MEQ/100 ML PIGGYBACK 100 MEQ IV (00:58)
[2021-05-27 01:00] VITALS: PULSE 70; RESP 19; O2SAT 99
[2021-05-27 19:54] LABS: Acinetobacter baumannii Not Detected (Not Detect); Enterobacteriaceae species Not Detected (Not Detect); Enterococcus species Not Detected (Not Detect); Listeria monocytogenes Not Detected (Not Detect); Methicillin-resistant gene Not Detected (Not Detect); Streptococcus agalactiae (Gr B Not Detected (Not Detect); Streptococcus pneumonia Not Detected (Not Detect); Streptococcus pyogenes (Gr A) Not Detected (Not Detect); Streptococcus species Not Detected (Not Detect)
[2021-05-27 19:55] LABS: Candida albicans Not Detected (Not Detect); Candida glabrata Not Detected (Not Detect); Candida krusei Not Detected (Not Detect); Candida parapsilosis Not Detected (Not Detect); Candida tropicalis Not Detected (Not Detect); E. coli Not Detected (Not Detect); Enterobacter cloacae complex Not Detected (Not Detect); Haemophilus influenzae Not Detected (Not Detect); Neisseria meningitidis Not Detected (Not Detect); Proteus species Not Detected (Not Detect); Pseudomonas aeruginosa Not Detected (Not Detect); Serratia marcescens Not Detected (Not Detect)
[2021-05-27 19:58] LABS: Staphylococcus species Detected (Not Detect)
--- NOTE | 2021-05-27 20:44 | PC.NURSE ---
faxed blood culture results and lab results to [facility] on May 27 @[id number]
== END 2021-05-27 02:03 | disposition short-term general hospital (02) ==
PROVIDERS: Emergency Provider Emergency Medicine; PCP Family Medicine
DX: U07.1 COVID-19 (principal); J12.82 Pneumonia due to coronavirus disease 2019; J96.01 Acute respiratory failure with hypoxia; J44.0 Chronic obstructive pulmonary disease with (acute) lower respiratory infection
CPT/HCPCS: 71045; 80053; 81001; 83605; 83690; 83735; 83880; 84484; 85025; 87040; 87077; 87086; 87150; 87186; 87205; 87633; 87635; 93005; 96361; 96365; 96366; 96375; 99284; 99285; C9803; J1100; J2405

== ENCOUNTER → 2021-06-25 15:03 | Outpatient (CLI) | payer OTHER, SELFPAY ==
[2021-06-25 16:39] LABS: COVID19 -Nasal RAPID Negative (Negative)
== END ==
PROVIDERS: PCP Family Medicine; Visit Provider Physician Assistant
DX: Z20.822 Contact with and (suspected) exposure to COVID-19 (principal)
CPT/HCPCS: 87635

== ENCOUNTER → 2021-07-17 12:10 | Outpatient (CLI) | payer OTHER, SELFPAY ==
--- NOTE | 2021-07-17 12:12 | DI.RAD.S_ITS ---
PROCEDURE: XR CHEST 2V INDICATIONS: s/p COVID, pre-operative clearance TECHNIQUE: 2 views of the chest were acquired. COMPARISON: [facility], CR, XR CHEST 1V, 05/26/2021, 21:04. FINDINGS: Surgical changes and devices: None. Lungs and pleura: Improved aeration of the lungs with minimal indistinctness of the left costophrenic sulcus, which may be secondary to soft tissue attenuation. No pneumothorax. Mediastinum: The cardiac silhouette is upper limits of normal, partially exaggerated by technique. Calcified atheromatous change of the aorta. Bones and chest wall: No suspicious bony abnormalities. Soft tissues appear unremarkable. IMPRESSION: No acute cardiopulmonary abnormality. Dictated by: Keith Greenberg M.D. on 07/17/2021 at 13:10 Approved by: Keith Greenberg M.D. on 07/17/2021 at 13:11
[2021-07-17 12:49] LABS: Add Manual Diff / Slide Review NO; Basophils Absolute Auto 100 /uL (0-100); Basophils Percent Auto 1.1 % (0-2); Eosinophils Absolute Auto 100 /uL (0-450); Eosinophils Percent Auto 2.1 % (2-4); Hematocrit 33.9 % (36-46); Hemoglobin 11.2 g/dL (12.0-16.0); Lymphocytes Absolute Auto 1200 /uL (1100-4500); Lymphocytes Percent Auto 20.4 % (25-40); Mean Corpuscular Hemoglobin 28.6 PG (26-34); Mean Corpuscular Volume 86.7 fL (80-100); Monocytes Absolute Auto 300 /uL (0-900); Monocytes Percent Auto 5.6 % (3-14); Neutrophils Absolute Auto 4200 /uL (1500-7000); Neutrophils Percent Auto 70.8 % (50-75); Platelet Count 320 X10^3/uL (150-400); Red Blood Cell Count 3.91 X10^6/uL (4.0-5.2); Red Cell Distribution Width 19.3 % (11.6-14.8); White Blood Cell Count 5.9 X10^3/uL (4.5-11.0)
[2021-07-17 13:00] LABS: D Dimer 892 ng/mL (<230)
[2021-07-17 13:06] LABS: Alanine Aminotransferase 20 IU/L (<35); Albumin 4.1 g/dL (3.5-5.0); Albumin Globulin Ratio 1.3 (1.0-2.8); Alkaline Phosphatase 85 U/L (38-126); Aspartate Aminotransferase 29 IU/L (14-36); BUN Creatinine Ratio 26.7 (6-22); Bilirubin Total 0.5 mg/dL (0.2-1.3); Blood Urea Nitrogen 24 mg/dL (7-17); Calcium 10.3 mg/dL (8.4-10.2); Carbon Dioxide 26 mmol/L (22-32); Chloride 106 mmol/L (98-107); Estimated Glomerular Filt Rate > 60.0 mL/min (>60); Globulin 3.1 g/dL (1.7-4.1); Glucose 123 mg/dL (80-110); HEMOLYSIS < 15 (0-50); Potassium 3.5 mmol/L (3.4-5.1); Sodium 141 mmol/L (137-145); Total Protein 7.2 g/dL (6.3-8.2)
[2021-07-17 13:14] LABS: NT-proBNP (BNP-Adult 18+) 206 pg/mL (<450)
[2021-07-17 13:18] LABS: Fibrinogen 360 mg/dL (211-428)
[2021-07-17 13:38] LABS: TSH w/ Reflex to FT4 1.17 uIU/mL (0.47-4.68)
== END ==
PROVIDERS: PCP Family Medicine; Referring Provider Family Medicine; Visit Provider Family Medicine
DX: U07.1 COVID-19 (principal); J12.82 Pneumonia due to coronavirus disease 2019; Z01.818 Encounter for other preprocedural examination; R68.89 Other general symptoms and signs
CPT/HCPCS: 36415; 71046; 80053; 83880; 84443; 85025; 85379; 85384; 85610

== ENCOUNTER → 2021-07-31 13:22 | Outpatient (CLI) | payer OTHER, SELFPAY ==
[2021-07-31 15:13] LABS: Add Manual Diff / Slide Review NO; Basophils Absolute Auto 0 /uL (0-100); Basophils Percent Auto 0.8 % (0-2); Eosinophils Absolute Auto 200 /uL (0-450); Eosinophils Percent Auto 2.9 % (2-4); Hematocrit 35.5 % (36-46); Hemoglobin 11.5 g/dL (12.0-16.0); Lymphocytes Absolute Auto 1200 /uL (1100-4500); Lymphocytes Percent Auto 22.3 % (25-40); Mean Corpuscular HGB Conc 32.4 % (30-36); Mean Corpuscular Hemoglobin 27.9 PG (26-34); Mean Corpuscular Volume 86.1 fL (80-100); Monocytes Absolute Auto 400 /uL (0-900); Monocytes Percent Auto 6.6 % (3-14); Neutrophils Absolute Auto 3700 /uL (1500-7000); Neutrophils Percent Auto 67.4 % (50-75); Platelet Count 272 X10^3/uL (150-400); Red Blood Cell Count 4.12 X10^6/uL (4.0-5.2); Red Cell Distribution Width 17.9 % (11.6-14.8); White Blood Cell Count 5.4 X10^3/uL (4.5-11.0)
[2021-07-31 15:31] LABS: D Dimer 1720 ng/mL (<230)
== END ==
PROVIDERS: PCP Family Medicine; Referring Provider Family Medicine; Visit Provider Family Medicine
DX: U07.1 COVID-19 (principal); J12.82 Pneumonia due to coronavirus disease 2019
CPT/HCPCS: 36415; 85025; 85379

== ENCOUNTER → 2021-08-01 12:05 | Outpatient (CLI) | payer OTHER, SELFPAY ==
--- NOTE | 2021-08-01 12:06 | DI.CT.S_ITS ---
PROCEDURE: CT ANGIO CHEST PE PROTOCOL INDICATIONS: elevated d-dimer, SOB TECHNIQUE: After the administration of intravenous contrast, 2 mm thick sections acquired from the pulmonary apices to the posterior costophrenic angles. 3-dimensional maximum intensity projection (MIP) coronal and sagittal reformats were then acquired through the thorax. For radiation dose reduction, the following was used: automated exposure control, adjustment of mA and/or kV according to patient size. COMPARISON: None. FINDINGS: Image quality: Excellent. Pulmonary arteries: Central pulmonary arteries are normal in size. There is pulmonary embolus involving the anterior basal segment right lower lobe pulmonary artery. Reference image 83/5. There is also right middle lobe and lateral segment right middle lobe pulmonary embolus. Reference image 71/5. No central pulmonary emboli. Lungs and pleura: Minimal patchy bilateral ground-glass opacities, nonspecific, possibly secondary to submaximal pulmonary expansion.. No pleural effusions or pneumothorax. Central and peripheral airways are patent. Mediastinum: Mild cardiomegaly. Small pericardial effusion. Moderate to severe coronary artery calcifications. No mediastinal or hilar adenopathy. Thoracic aorta is normal in caliber and enhancement. Esophagus is normal in caliber, without hiatal hernia. Bones and chest wall: No suspicious bony lesions. Ribs and thoracic spine appear intact throughout. Thyroid gland is somewhat heterogeneous in appearance. No axillary or supraclavicular adenopathy. Abdomen: Visualized upper abdominal solid organs appear normal in the early arterial phase of enhancement. IMPRESSION: 1. Acute small pulmonary emboli in the right middle lobe and right lower lobe distribution. 2. Coronary artery disease, mild cardiomegaly, small pericardial effusion. Dictated by: Abraham Smith M.D. on 08/01/2021 at 12:42 Approved by: Abraham Smith M.D. on 08/01/2021 at 12:50
== END ==
PROVIDERS: PCP Family Medicine; Referring Provider Family Medicine; Visit Provider Family Medicine
DX: U07.1 COVID-19 (principal); J96.01 Acute respiratory failure with hypoxia; I26.99 Other pulmonary embolism without acute cor pulmonale; I25.10 Atherosclerotic heart disease of native coronary artery without angina pectoris; I51.7 Cardiomegaly; I31.3 Pericardial effusion (noninflammatory); J12.82 Pneumonia due to coronavirus disease 2019; R79.89 Other specified abnormal findings of blood chemistry
CPT/HCPCS: 71275; Q9967

== ENCOUNTER → 2021-08-02 14:53 | Outpatient (CLI) | payer OTHER, SELFPAY ==
--- NOTE | 2021-08-02 14:54 | DI.ECHO.S_ITS ---
[facility] +---------+ : : [address] [address] : : : : [id number] : : : : Phone: [phone]+ Echocardiogram Report + + :Name: MITUL EPSTEIN Study Date: 08/02/2021 Height: 26 in : :[facility] ReadingLocation: Weight: 215 lb : : Gender: Female BSA: 1.0 m2 : :: 1940 Age: 80 yrs BP: 160/90 mmHg: :Reason For Study: Lower extremity edema : :Ordering Physician: : :ALMA Performed By: Spencer Bernal : :Referring: BOYD MCKEON : + + Interpretation Summary 1) Normal left ventricular size, wall motion, and systolic function (EF 55- 60%). 2) Normal right ventricular size and function. 3) Diastolic parameters suggest a pseudonormalization pattern, consistent with probable elevated filling pressures. 4) There is mild aortic regurgitation. 5) There is a trivial pericardial effusion noted, located next to the right atrium. 6) Hypertension present during the study (BP 160/90mmHg). 7) No prior Echo available for comparison. Procedure: A two-dimensional transthoracic echocardiogram with color flow and Doppler was performed. There is no prior echocardiogram noted for this patient. Fair image quality. The patient was in normal sinus rhythm during the exam. The patient had occasional PVCs during the exam. Left Ventricle: The left ventricle is normal in size. Left ventricular wall thickness is at the upper limits of normal. The ejection fraction is estimated to be 55-60%. Left ventricular systolic function appears normal without focal wall motion abnormalities. Diastolic parameters suggest a pseudonormalization pattern, consistent with probable elevated filling pressures. Right Ventricle: The right ventricle is normal in size and function. Atria: The left atrium is moderately dilated. The right atrium is mildly dilated. There is no Doppler evidence for an interatrial shunt. Mitral Valve: The mitral valve leaflets appear borderline thickened, but open well. There is mild mitral regurgitation. Aortic Valve: The aortic valve is trileaflet. The aortic valve opens well. The aortic valve is slightly calcified. There is no aortic valve stenosis. There is mild aortic regurgitation. Tricuspid Valve: The tricuspid valve is normal. There is trace tricuspid regurgitation. The right ventricular systolic pressure is estimated to be at least 28 mmHg based on an estimated right atrial pressure of 3 mm Hg. Pulmonic Valve: The pulmonic valve leaflets are thin and pliable; valve motion is normal. There is a trace or physiologic amount of pulmonic regurgitation. Great Vessels: The aortic root is normal size. The ascending aorta is at the upper limits of normal in size. The aortic arch is normal in size. The IVC is of normal diameter and collapses greater than 50% with a sniff. This suggests a low right atrial pressure of 3 mm Hg. Pericardium/ Pleura There is an anterior echo-free space consistent with a fat pad. There is a trivial pericardial effusion noted. There is no pleural effusion. MMode/2D Measurements & Calculations LVIDd: 4.8 cm LVOT diam: 2.2 cm LVIDs: 2.9 cm Ao root diam: 3.3 cm FS: 39.6 % asc Aorta Diam: 3.5 cm IVSd: 1.0 cm Ao Arch Diam (Prox Trans): 1.6 cm LVPWd: 1.0 cm LV mata. diameter/BSA (cm/m^2): 4.6 LV sys. diameter/BSA (cm/m^2): 2.8 LA A2 area: 20.9 cm2 RA long axis: 5.9 cm LA A4 area: 19.0 cm2 IVC diam: 1.4 cm LA length (vol): 6.1 cm LA vol: 55.3 ml LA vol index: 52.7 ml/m2 LVLs ap4: 6.0 cm LVLd ap2: 7.4 cm LVLs ap2: 6.2 cm TAPSE_phl: 2.1 cm Doppler Measurements & Calculations Ao V2 max: 154.0 cm/sec LVOT Max Len: 94.2 cm/sec Ao V2 mean: 113.0 cm/sec LV V1 max P.5 mmHg Ao max P.0 mmHg LV V1 VTI: 20.0 cm Ao mean P.0 mmHg DECLAN(I,D): 2.2 cm2 Ao V2 VTI: 34.9 cm DECLAN(V,D): 2.3 cm2 sev ratio: 0.57 DECLAN indexed to BSA (cm^2/m^2): 2.1 MV E max len: 84.8 cm/sec TR max len: 248.4 cm/sec MV A max len: 118.0 cm/sec TR max P.7 mmHg MV E/A: 0.72 PA V2 max: 62.0 cm/sec Med Peak E' Len: 6.1 cm/sec PA V2 mean: 48.1 cm/sec E/E' med: 13.9 PA mean P.0 mmHg Lat Peak E' Len: 5.3 cm/sec PA pr(Accel): 44.4 mmHg E/E' lat: 15.9 E/e' average: 14.9 MV dec time: 0.28 sec SV(LVOT): 76.0 ml AV VR_phl: 0.61 DECLAN(VTI)/BSA_phl: 2.1 MV P1/2t-pr_phl: 83.0 msec Reading Physician:05:04 PM
== END ==
PROVIDERS: PCP Family Medicine; Referring Provider Family Medicine; Visit Provider Family Medicine
DX: I08.0 Rheumatic disorders of both mitral and aortic valves (principal); R60.0 Localized edema
CPT/HCPCS: 93306

== ENCOUNTER → 2021-11-26 12:26 | Outpatient (CLI) | payer OTHER, SELFPAY ==
[2021-11-26 12:57] LABS: Add Manual Diff / Slide Review NO; Basophils Absolute Auto 0 /uL (0-100); Basophils Percent Auto 0.9 % (0-2); Eosinophils Absolute Auto 100 /uL (0-450); Eosinophils Percent Auto 2.5 % (2-4); Hematocrit 29.3 % (36-46); Hemoglobin 9.6 g/dL (12.0-16.0); Lymphocytes Absolute Auto 1000 /uL (1100-4500); Lymphocytes Percent Auto 19.6 % (25-40); Mean Corpuscular HGB Conc 32.9 % (30-36); Mean Corpuscular Hemoglobin 27.4 PG (26-34); Mean Corpuscular Volume 83.2 fL (80-100); Monocytes Absolute Auto 500 /uL (0-900); Monocytes Percent Auto 9.9 % (3-14); Neutrophils Absolute Auto 3300 /uL (1500-7000); Neutrophils Percent Auto 67.1 % (50-75); Platelet Count 302 X10^3/uL (150-400); Red Blood Cell Count 3.53 X10^6/uL (4.0-5.2); Red Cell Distribution Width 17.4 % (11.6-14.8); White Blood Cell Count 4.9 X10^3/uL (4.5-11.0)
[2021-11-26 13:04] LABS: INR 1.1 (0.9-1.3); Prothrombin Time 11.9 SECONDS (10.1-12.7)
[2021-11-26 13:06] LABS: PTT Partial Thromboplastin Tim 29 SECONDS (26.4-36.2)
[2021-11-26 13:20] LABS: Alanine Aminotransferase 15 IU/L (<35); Albumin Globulin Ratio 1.4 (1.0-2.8); Alkaline Phosphatase 85 U/L (38-126); Aspartate Aminotransferase 23 IU/L (14-36); BUN Creatinine Ratio 21.1 (6-22); Bilirubin Total 0.3 mg/dL (0.2-1.3); Blood Urea Nitrogen 20 mg/dL (7-17); Calcium 9.8 mg/dL (8.4-10.2); Carbon Dioxide 30 mmol/L (22-32); Chloride 107 mmol/L (98-107); Cholesterol 144 mg/dL (140-199); Estimated Glomerular Filt Rate > 60 mL/min (>60); Globulin 2.9 g/dL (1.7-4.1); Glucose 109 mg/dL (80-110); HDL Cholesterol 57 mg/dL (40-60); HEMOLYSIS < 15 (0-50); LDL Cholesterol Calculated 67 mg/dL (<100); Potassium 3.9 mmol/L (3.4-5.1); Sodium 141 mmol/L (137-145); Total Protein 6.9 g/dL (6.3-8.2); Triglycerides 102 mg/dL (35-150)
[2021-11-26 16:03] LABS: Creatinine Urine Random 104.6 mg/dL
[2021-11-26 16:07] LABS: Microalbumin Urine Random 2.2 mg/dL (0-1.6)
== END ==
PROVIDERS: PCP Family Medicine; Referring Provider Family Medicine; Visit Provider Family Medicine
DX: I10 Essential (primary) hypertension (principal); K92.2 Gastrointestinal hemorrhage, unspecified
CPT/HCPCS: 36415; 80053; 80061; 82043; 82570; 85025; 85610; 85730

== ENCOUNTER → 2021-12-05 12:30 | Outpatient (CLI) | payer OTHER, SELFPAY ==
[2021-12-05 18:03] LABS: Hematocrit 29.6 % (36-46); Hemoglobin 9.7 g/dL (12.0-16.0)
[2021-12-05 18:30] LABS: HEMOLYSIS < 15 (0-50); Iron 27 ug/dL (37-170)
[2021-12-05 18:42] LABS: Percent Iron Saturation 7 % (15-50); Total Iron Binding Capacity 395 ug/dL (265-497); Transferrin 299 mg/dL (206-381)
[2021-12-05 19:05] LABS: Ferritin 19 ng/mL (11-264)
== END ==
PROVIDERS: PCP Family Medicine; Referring Provider Family Medicine; Visit Provider Family Medicine
DX: D64.9 Anemia, unspecified (principal)
CPT/HCPCS: 36415; 82728; 83540; 83550; 85014; 85018

== ENCOUNTER → 2022-01-08 13:30 | Outpatient (CLI) | payer OTHER, SELFPAY ==
[2022-01-08 14:07] LABS: COVID19 -Nasal RAPID Negative (Negative)
== END ==
PROVIDERS: PCP Family Medicine; Referring Provider Orthopaedic Surgery; Visit Provider Orthopaedic Surgery
DX: Z20.822 Contact with and (suspected) exposure to COVID-19 (principal)
CPT/HCPCS: 87635; C9803

== ENCOUNTER 2022-01-10 08:44 | Day surgery (SDC) | payer OTHER, SELFPAY ==
[2022-01-08 07:36] VITALS: BMI 34.0
[2022-01-10] VITALS (16 sets, daily range): BP systolic 113–149; BP diastolic 48–72; PULSE 65–88; RESP 15–18; TEMP 35.7–37; O2SAT 92–100; BMI 34.0
[2022-01-10] MEDS: ACETAMINOPHEN 325 MG TABLET 975 MG PO (09:33)
[2022-01-10] MEDS: VANCOMYCIN 1,000 MG/200 ML PIGGYBACK 200 MG IV (10:13)
[2022-01-10] MEDS: LACTATED RINGERS 1,000 ML 42 ML IV ×2 (10:19→13:30)
--- NOTE | 2022-01-10 10:31 | PM.PREOP ---
Pre-operative Note COVID-19 COVID-19 status: Negative Interval Note History & Physical reviewed/Exam performed by Physician: Yes Changes to H&P: No
--- NOTE | 2022-01-10 10:32 | P.OP_ITS ---
Operative Date/Time/Diagnoses Date of procedure: 01/10/22 Time of procedure: 11:30 Pre-op diagnosis: left knee OA Post-op diagnosis: same Procedure & Clinicians Procedure: Left total knee arthroplasty Same procedure as scheduled: Yes Indications: The patient has had progressively worsening left knee pain with radiographic changes consistent with arthritis. Non-operative management has failed and the patient has requested total knee replacement. The risks, benefits and alternatives to surgery were discussed with the patient prior to proceeding. Risks discussed included, but were not limited to, failure to relieve pain, stiffness, infection, nerve damage, deep venous thrombosis, pulmonary embolism, stroke, coma, heart attack, permanent paralysis and , as well as the potential need for eventual revision of the prosthetic. Surgeon: Margo Adams Custom Tailor Apprentice: Aruna Lord Anesthesia Type: General Operative Notes Findings: Severe left knee arthritis, full range of motion, adequate stability Closure Type: primary Specimen(s): none sent Prosthetic devices, grafts, tissues, transplants, or devices: [employer] [facility] bi [employer] size 5 femur, size 4 tibia, 32 x 7-1/2 mm patella, +10 poly Applied: drain(s) Estimated Blood Loss (mL): 250 Blood products transfused: none Tourniquet time (min): 90 Procedure in detail: The patient was seen in the pre-operative area, where the patient identified the left knee as the operative site and this was marked with my initials. The patient received pre-operative antibiotics, and was taken to the operating room and placed on the operative table in the supine position. After satisfactory anesthesia, a time broker out was performed. The left leg was encircled with a tourniquet about the proximal thigh, and the leg was prepared from the toes to the tourniquet with ChloroPrep in the usual fashion and draped through sterile drapes. The leg was elevated and exsanguinated with Eschmark bandage and the jacob rniquet inflated to [250] mmHg pressure. The knee was approached through an approximately 18 cm incision centered over the patella and carried into the knee through a medial parapatellar arthrotomy. A portion of the medial and lateral meniscus was resected. Soft tissue was carefully mobilized around the patella the patella was measured with a caliper. Bone was resected from the patella and the patellar height was reconstituted with up an appropriate sized patellar component. A cover was then placed on the patella. A small amount of additional medial and lateral meniscus was resected. The distal femur was cut at 5?. A [+2] cut was used. It looked like an appropriate distal femoral cut and the cut was made without difficulty. An extramedullary guide was used for the tibial cut. 10 mm was resected off the least affected side.The tibia was prepared. The rotation was assessed. The patient was placed in extension residual medial and lateral meniscus as well as any residual bone was carefully resected. [No] additional tibia was resected. Hemostasis was achieved especially posteriorly. Additional local was injected into the posterior capsule. The extension gap was assessed and additional releases for gap balancing were performed as necessary. It was checked with the gap choral director. The femoral component was trial was placed and the notch was finished. The rotation was assessed and the appropriate size femoral guide was placed on the distal femur and finishing cuts were made. There is no evidence of notching. The anterior, posterior and chamfer cuts were then made. The butter grader ior osteophytes and soft tissues were then removed. The posterior capsule was injected with part of a mixture of 60 ml 0.25% Marcaine mixed with 20 ml Exparel for post operative pain control. The remainder of this mixture was injected into the capsule and subcutaneous tissues during cement curing. The tibial and femoral components were then placed and the knee placed through a range of motion. Range of motion was [0-130], with good stability throughout the range. The trials were then removed, and the tibia was finished. The bone was prepared with pulsatile lavage, and dried with a sponge. Cement was applied and the final prosthetics placed. Excess cement was removed during and after cement curing. A brief Betadine soak was performed. After confirming there was no extruded cement posteriorly, the final tibial insert was placed. The knee was copiously irrigated and the tourniquet deflated. Hemostasis was obtained with the bovie. A drain was placed and brought out superolaterally. The capsule was closed with interrupted nonabsorbable suture. The subcutaneous layer was closed with barbed sutures, and the skin with a running 3-0 V-Lock suture and Surgical glue. An blanco dressing was applied and the patient was taken to recovery having tolerated the procedure well. Complications: none Post-operative Condition: stable Disposition: Acute Care Plan for aftercare: The patient will be maintained on a standard total knee replacement protocol with weight bearing as tolerated. The patient will receive Xarelto and sequential compression devices for DVT prophylaxis. The patient will be discharged home when safe for the home environment.
[2022-01-10] MEDS: CEFAZOLIN 2 GM/20 ML SYRINGE IV ×2 (12:07→20:37)
--- NOTE | 2022-01-10 12:24 | SUR.OPER ---
Addendum entered by Karin Aquino R.N. 01/10/22 12:53: DeMayo positioner used. Original Note: Supine on padded OR bed. Pillow under head, arms secured on padded armboards <90 degree abduction. Safety belt across torso. Non-operative leg secured with tape over blanket over lower leg. Operative leg secured in DeMayo/Tre/Nathe positioner. Foam padded brace at thigh of operative leg.
[2022-01-10] MEDS: SODIUM CHLORIDE IRRIG SOLUTION 250 ML, POVIDONE-IODINE SPONGE STICKS 1 APPLIC IRR (13:29)
[2022-01-10] MEDS: BUPIVACAINE LIPOSOME 266 MG/20 ML VIAL INJ (13:30)
[2022-01-10] MEDS: BUPIVACAINE 0.25% (PF) 60 ML, EPINEPHrine 0.3 MG INJ (13:30)
[2022-01-10] MEDS: fentaNYL 100 MCG/2 ML INJ IV ×2 (14:26→14:56)
[2022-01-10] MEDS: ONDANSETRON 4 MG/2 ML INJ IV ×2 (14:27→19:52)
[2022-01-10] MEDS: HYDROMORPHONE 2 MG INJ IV (14:51)
[2022-01-10] MEDS: LACTATED RINGERS 1,000 ML 100 ML IV (15:35)
--- NOTE | 2022-01-10 16:38 | PC.NURSE ---
Pt arrived @ 1530 Alert/ drowsy Some nausea upon arrival. Left knee VAMSI dsg, ruth wrap & hemavac intact/ patent. IVF LR @ 100cc/hr started as per orders. Infusing into RAC via pump w/o incidence. Call light w/in reach, bed alarm on for pt safety. Continue w/plan of care.
[2022-01-10] MEDS: ATORVASTATIN 20 MG TABLET 10 MG PO (20:34)
[2022-01-10] MEDS: GABAPENTIN 400 MG CAPSULE 800 MG PO (20:35)
[2022-01-10] MEDS: ASPIRIN EC 81 MG TABLET PO (20:35)
[2022-01-10] MEDS: DOCUSATE 100 MG CAPSULE PO (20:35)
[2022-01-10] MEDS: OXYCODONE IR 5 MG TABLET PO (20:35)
[2022-01-10] MEDS: IBUPROFEN 400 MG TABLET PO (20:35)
[2022-01-11] MEDS: LACTATED RINGERS 1,000 ML 100 ML IV (01:42)
[2022-01-11] MEDS: IBUPROFEN 400 MG TABLET PO ×3 (04:44→12:27)
[2022-01-11] MEDS: ACETAMINOPHEN 325 MG TABLET 650 MG PO ×2 (04:44→12:26)
[2022-01-11] MEDS: CEFAZOLIN 2 GM/20 ML SYRINGE IV (04:45)
[2022-01-11 04:48] VITALS: BP 149/63; PULSE 79; RESP 17; TEMP 36.4; O2SAT 93
[2022-01-11 05:35] LABS: Hematocrit 27.3 % (36-46); Hemoglobin 8.7 g/dL (12.0-16.0)
--- NOTE | 2022-01-11 08:50 | PT.IIE ---
Current Diagnoses Unilateral primary osteoarthritis, left knee (01/10/22) Presence of unspecified artificial knee joint (01/10/22) Surgery Performed Operation Date: 01/10/22 10:45 Actual Procedures p Total Knee Arthroplasty(Left) - Margo Adams MD Surgical History (Last Updated 08/02/21 @ 11:04 by Zoey Machado, RN) Anesthesia History of carpal tunnel repair (1989) History of hip replacement (2003) History of hip replacement (2006) History of hip replacement (2010) History of spinal surgery (2015) History of spinal surgery (2005) Hx of bilateral cataract extraction Status post knee surgery (2003) Status post laminectomy (2005) Medical History (Last Updated 01/08/22 @ 07:49 by Zoey Machado RN) COPD (chronic obstructive pulmonary disease) (2015) COVID-19 virus infection (05/2021) CTS (carpal tunnel syndrome) (1988) Fractures (2014) GI bleed (2021) Glaucoma (2013) Hayfever (1999) Morbid (severe) obesity due to excess calories Osteoarthritis Pulmonary embolism (07/2021) Retinal detachment (2013) Physical Therapy Inpatient Evaluation/Re-Eval M1 PT/OT-IP Prior Functional Status Start: 01/11/22 13:08 Freq: NEEDED Status: Active Protocol: Document 01/11/22 08:50 AB (Rec: 01/11/22 13:21 AB [id number]) Medical Review Prior Functional Status Medical History Reviewed Yes Communication able to make needs known Mobility and Gait pt stated that she is modified ndependent with all mobilities and ambulation using FWW Social History Household Members children Living Arrangements House Number of Floors (Floors) One Floor Number of Stairs To Enter/Railing? no steps to enter from the back but needs to ambulate ~ 100 ft 3 steps to enter with R rail ascending from the garage Home Environment Standard Height Toilet,Walk in Shower Home Equipment Front Wheel Walker,Raised Toilet Seat Without Armrests, Shower Seat without Backrest, Hand Held Shower Additional Social History Comment pt will have her daughter and TAYE to assist her M2 PT-IP Current Condition Start: 01/11/22 13:08 Freq: NEEDED Status: Active Protocol: Document 01/11/22 08:50 AB (Rec: 01/11/22 13:21 AB [email or web address]) Physical Therapy Current Condition Current Condition Evaluation Date 01/11/22 Treatment Diagnosis s/p L TKA; difficulty in walking Onset Date 01/10/22 M3 PT-IP Subjective Start: 01/11/22 13:08 Freq: NEEDED Status: Active Protocol: Document 01/11/22 08:50 AB (Rec: 01/11/22 13:21 AB [id number]) Subjective Physical Therapy Visit Type Type Initial Evaluation Visit Start Time 08:50 Visit Stop Time 10:06 Total Visit Minutes [address] REPORTER Visits 0 Physical Therapy Visit Comments Patient Comments agreeable to do PT Therapy Pain Assessment Pain When Pain Assessed At Rest Pain Present Pain Present Pain Reported Location Left Knee Intensity 2 Scale Used 4/10 with mobility Pain Management Techniques Apply Cold,Distraction, Modification of Treatment,Re- positioning,Timing of Activity with Medications M4 PT-IP Mobility and Gait Start: 01/11/22 13:08 Freq: NEEDED Status: Active Protocol: Document 01/11/22 08:50 AB (Rec: 01/11/22 13:21 AB [id number]) PT-Bed Mobility Assessment Supine to Sit Supine to Sit Standby Assistance PT-Transfer Assessment Sit to and From Stand Sit to and from Stand Contact Guard Assistance,1 Person Assistance,Use of Upper Extremities Equipment Transfer Assistive Device Gait Belt,Front Wheeled Walker Orthotic/Prosthetic Devices or Brace: No Transfers Transfer Destination Toilet Transfer Technique ambulated using FWW Transfer Ability Level of Assist Contact Guard Assistance,1 Person Assistance,Use of Upper Extremities Comments Mobility Comments initially stating that her pain is fine 2/10 but increase during mobility with slower movement towards end of tx session with moaning but stated pain is at 3-4/10. pt does not want to take much pain meds and just takes tylenol. completed supine to sit SBA. requested to use the toilet. sit to stand CGA and ambulated to the toilet using FWW CGA to min A. pt with c/o increase pain. completed hygiene care in sitting but needs assistance with brief management. completed ambulation to the chair using FWW CGA to min A. agreed to do stairs. ambulated in the hallway 50 ft using fWW CGA to min A and has to sit down due to c/o pain. educated on stair climbing. completed up/down steps holding on R rail with B hands mod A and cues. assisted pt back to her room. ambulated from w/c to chair using FWW min A. positioned pt on the chair. call light and table placed within reach. caregiver training set up this afternoon. pt stated that daughter will be in at ~ 2pm. Gait Assessment Gait Gait Assistance Required: Minimum Assistance Distance (Feet) 50 Able to Maintain Weight Bearing Status Yes During Gait Assistive Devices Assistive Device Gait Belt,Front Wheeled Walker Orthotic/Prosthetic Devices or Brace: No Gait Deviations General Gait Pattern Antalgic,Decreased Stride Length,Decreased Feet Clearance Factors Limiting Gait Function Factors Limiting Gait Function Decreased Activity Tolerance, Decreased Strength,Limited Range of Motion,Pain,Poor Balance,Poor Safety Awareness Stair Climbing Assessment Evaluation Level of Assist On Stairs Moderate Assistance Devices Stair Climbing Assistive Devices Right Railing Technique/Endurance Stair Climbing Direction Ascend and Descend Stair Climbing Technique Step to Step Number of Steps Climbed 3 Query Text: Stair Climbing Set # Repetitions (reps) 1 PT-Balance Assessment Sitting Balance and Reactions Static Sitting Balance Ability Normal Dynamic Sitting Balance Ability Good Standing Balance and Reactions Static Standing Balance Ability Fair Dynamic Standing Balance Ability Fair Device Used FWW M5 PT-IP Objective Assessments Start: 01/11/22 13:08 Freq: NEEDED Status: Active Protocol: Document 01/11/22 08:50 AB (Rec: 01/11/22 13:21 AB [email or web address]) Orientation Orientation/Cognition Level of Alertness Alert Orientation Name,Age,Birthday,Month,Date, Year,Day of Week,Place, Situation Language Function Ability No Deficits Noted Safety Awareness Understands Safety Issues Memory Description No Deficits Noted Gross Range of Motion Lower Extremity ROM Assessment Left Impaired Impairments L knee flexion: ~ 50 deg Strength Lower Extremity Strength Assessment Left Impaired Hip 4-/5 Knee 3+/5 Coordination Assessment Gross Coordination Gross Coordination WNL Sensation Assessment Sensation Gross Sensation WNL Muscle Tone Muscle Tone WNL Yes M6 PT-IP Treatment Start: 01/11/22 13:08 Freq: NEEDED Status: Active Protocol: Document 01/11/22 08:50 AB (Rec: 01/11/22 13:21 AB [email or web address]) Physical Therapy Treatment Exercises Exercises Heel Slides Education Education Provided Precautions,Weight Bearing Status,Post-Op Packet,Safety M7 PT-IP Assessment and Plan Start: 01/11/22 13:08 Freq: NEEDED Status: Active Protocol: Document 01/11/22 08:50 AB (Rec: 01/11/22 13:21 AB [id number]) PT Summary Assessment and Plan Potential Rehabilitation Potential Good Status of Condition at Evaluation Stable Summary Impairments Pain,ROM,Strength,Balance, Coordination,Sensation,Tone, Cognition,Bed Mobility, Transfers,Gait,Activity Tolerance Assessment Summary pt rquiring CGA to min A with ambulation , mod A with stair climbing and with c/o increase pain towards end of tx session. caregiver training will be conducted this afternoon with daughter for safe d/c plan. pt stated that she has outpt PT set up. will assess progress. Goals Bed Mobility Goal Independent Transfer Goal Independent Gait Goal Independent Gait Distance 150 Other Goals up/down 3 steps R rail SBA Days to Meet Goals 5 Frequency of Treatment Frequency Of Treatment Twice a Day Treatment Plan Physical Therapy Treatment Plan Bed Mobility Training,Transfer Training,Gait Training, Therapeutic Exercise,Balance Retraining,Post Op Education, Discharge Planning,Hot or Cold Pack,Neuromuscular Re-ed, Coordination Retraining,Manual Therapy Weight Bearing Status Weight Bearing Status Weight Bear as Tolerated Allowed Weight Bearing Amount (enter % LLE WBAT or #) (%) Recommendations To Nursing Amount of Assist Needed 1 Person Assist Discharge Recommendations PT Discharge Recommendations Home with Assistance, Outpatient PT Transportation Needs at Discharge Private Vehicle
[2022-01-11 08:55] VITALS: BP 115/41; PULSE 81; RESP 18; TEMP 36.2; O2SAT 94
[2022-01-11] MEDS: PANTOPRAZOLE DR 40 MG TABLET PO (09:04)
[2022-01-11] MEDS: DOCUSATE 100 MG CAPSULE PO (09:05)
[2022-01-11] MEDS: OXYBUTYNIN 5 MG ER TAB PO (09:05)
[2022-01-11] MEDS: SERTRALINE 50 MG TABLET 25 MG PO (09:05)
[2022-01-11] MEDS: GABAPENTIN 400 MG CAPSULE 800 MG PO (09:06)
[2022-01-11] MEDS: FOLIC ACID 1 MG TABLET PO (09:06)
[2022-01-11] MEDS: FUROSEMIDE 40 MG TABLET PO (09:06)
[2022-01-11] MEDS: ASPIRIN EC 81 MG TABLET PO (09:08)
[2022-01-11] MEDS: TRAMADOL 50 MG TABLET PO ×2 (09:09→15:01)
[2022-01-11] MEDS: VIT C/E/ZN/COPPR/LUTEIN/ZEAXAN CAPSULE 1 CAP PO (09:18)
[2022-01-11 09:28] VITALS: BP 123/41; PULSE 70
--- NOTE | 2022-01-11 11:21 | P.DS_ITS ---
History of Present Illness History of Present Illness Date Patient Seen: 01/11/22 Time Patient Seen: 11:21 Chief complaint: OPB Narrative: Operative Date/Time/Diagnoses Date of procedure: 01/10/22 Time of procedure: 11:30 Pre-op diagnosis: left knee OA Post-op diagnosis: same Procedure & Clinicians Procedure: Left total knee arthroplasty Same procedure as scheduled: Yes Indications: The patient has had progressively worsening left knee pain with radiographic changes consistent with arthritis. Non-operative management has failed and the patient has requested total knee replacement. The risks, benefits and alternatives to surgery were discussed with the patient prior to proceeding. Risks discussed included, but were not limited to, failure to relieve pain, stiffness, infection, nerve damage, deep venous thrombosis, pulmonary embolism, stroke, coma, heart attack, permanent paralysis and , as well as the potential need for eventual revision of the prosthetic. Surgeon: Margo Adams Data Base Administrator: Aruna Lord Anesthesia Type: General Operative Notes Findings: Severe left knee arthritis, full range of motion, adequate stability Closure Type: primary Specimen(s): none sent Prosthetic devices, grafts, tissues, transplants, or devices: [employer] bi INSTRUCTOR WARPER size 5 femur, size 4 tibia, 32 x 7-1/2 mm patella, +10 poly Applied: drain(s) Estimated Blood Loss (mL): 250 Blood products transfused: none Tourniquet time (min): 90 Procedure in detail: The patient was seen in the pre-operative area, where the patient identified the left knee as the operative site and this was marked with my initials. The patient received pre-operative antibiotics, and was taken to the operating room and placed on the operative table in the supine position. After satisfactory anesthesia, a multimedia programmer out was performed. The left leg was encircled with a tourniquet about the proximal thigh, and the leg was prepared from the toes to the tourniquet with ChloroPrep in the usual fashion and draped through sterile drapes. The leg was elevated and exsanguinated with Eschmark bandage and the tourniquet inflated to [250] mmHg pressure. The knee was approached through an approximately 18 cm incision centered over the patella and carried into the knee through a medial parapatellar arthrotomy. A portion of the medial and lateral meniscus was resected. Soft tissue was carefully mobilized around the patella the patella was measured with a caliper.? Bone was resected from the patella and the patellar height was reconstituted with up an appropriate sized patellar component. A cover was then placed on the patella. A small amount of additional medial and lateral meniscus was resected. The distal femur was cut at 5?.? A [+2] cut was used. It looked like an appropriate distal femoral cut and the cut was made without difficulty.? An extramedullary guide was used for the tibial cut. 10 mm was resected off the least affected side.The tibia was prepared. The rotation was assessed. The patient was placed in extension residual medial and lateral meniscus as well as any residual bone was carefully resected. [No] additional tibia was resected. Hemostasis was achieved especially posteriorly. Additional local was injected into the posterior capsule. The extension gap was assessed and additional rele ases for gap balancing were performed as necessary.? It was checked with the gap belt cutter.? The femoral component was trial was placed and the notch was finished.? The rotation was assessed and the appropriate size femoral guide was placed on the distal femur and finishing cuts were made. There is no evidence of notching.? The anterior, posterior and chamfer cuts were then made. The posterior osteophytes and soft tissues were then removed. The posterior capsule was injected with part of a mixture of 60 ml 0.25% Marcaine mixed with 20 ml Exparel for post operative pain control. The remainder of this mixture was injected into the capsule and subcutaneous tissues during cement curing. The tibial and femoral components were then placed and the knee placed through a range of motion. Range of motion was [0-130], with good stability throughout the range. The trials were then removed, and the tibia was finished. The bone was prepared with pulsatile lavage, and dried with a sponge. Cement was applied and the final prosthetics placed. Excess cement was removed during and after cement curing.? A brief Betadine soak was performed.? After confirming there was no extruded cement posteriorly, the final tibial insert was placed. The knee was copiously irrigated and the tourniquet deflated. Hemostasis was obtained with the bovie. A drain was placed and brought out superolaterally. The capsule was closed with interrupted nonabsorbable suture. The subcutaneous layer was closed with barbed sutures, and the skin with a running 3-0 V-Lock suture and Surgical glue. An vamsi dressing was applied and the patient was taken to recovery having tolerated the procedure well. Complications: none Discharge Providers Provider Discharge Date: 01/11/22 Primary care physician: Jordyn Montemayor MD Consults: 01/10/22 06:00 Consult to Anesthesiology Routine Comment: Consulting Provider: Anesthesiologist Reason for consultation: Regional block for post operative pain control 01/10/22 15:27 Consult to Discharge Planning Routine Comment: Consult to Physical Therapy Evaluate & Treat Comment: Physician Instructions: postop TKA protocol Consult to Respiratory Therapy Evaluate & Treat Comment: Physician Instructions: Evaluate and treat Discharge provider: Aruna Lord PA-C Summary Hospital Course Discharge Diagnosis: s/p L TKA Acute on chronic anemia h/o recent PE Hospital Course: Ms Andujar's hospital course was unremarkable. On POD# 1 her H/H was 8.7/27.3, down from preop 12/05/2021 of 9.7/29.6. However, she was asymptomatic and her vital signs were stable. She worked with PT and felt confident about going home; she has outpt PT starting tomorrow. Pain was well-controlled with non-narcotic medication, but she would also like tramadol (not oxycodoone) for homegoing. She was eating and voiding without difficultly. Exam Vital Signs (past 8 hours): - 01/11/22 04:48 01/11/22 09:28 01/11/22 08:55 Temperature 97.6 F 97.2 F L Pulse Rate 79 70 81 Respiratory Rate 17 18 Blood Pressure 149/63 H 123/41 L 115/41 L Pulse Oximetry 93 94 Oxygen Flow Rate 0 0 Oxygen Delivery Method Nasal Cannula Oxygen Flow Rate 0 Narrative Exam Narrative: 5/5 strength in hip flexors, quadriceps, hamstrings, DF, PF, EHL bilaterally. Sensation to light touch intact in BLE. Calves soft, compressible, nontender. VAMSI dressing operating w/ scant bloody drainage. Objective Labs Result Diagrams: 01/11/22 05:20 Labs: Laboratory Results - last 24 hr 01/11/22 05:20 Hgb 8.7 L Hct 27.3 L PFSH Medical History (Updated 01/08/22 @ 07:49 by Zoey Machado RN) COPD (chronic obstructive pulmonary disease) (2015) COVID-19 virus infection (05/2021) CTS (carpal tunnel syndrome) (1988) Fractures (2014) GI bleed (2021) Glaucoma (2013) Hayfever (1999) Morbid (severe) obesity due to excess calories Osteoarthritis Pulmonary embolism (07/2021) Retinal detachment (2013) Surgical History (Updated 01/11/22 @ 11:05 by Aruna Lord PA-C) Anesthesia History of carpal tunnel repair (1989) History of hip replacement (2003) History of hip replacement (2006) History of hip replacement (2010) History of spinal surgery (2015) History of spinal surgery (2005) Hx of bilateral cataract extraction Status post knee surgery (2003) Status post laminectomy (2005) Family History Brother No problems noted. Brother No problems noted. Father Lung cancer Grandfather No problems noted. Grandmother Heart attack Mother Lung cancer Grandfather No problems noted. Grandmother Heart attack Social History household members: children Smoking Status: Former smoker alcohol intake: current Discharge Assessment & Plan Assessment and Plan Assessment: s/p L TKA Acute on chronic anemia h/o recent PE Plan of Treatment: Tylenol and tramadol for pain control, outpt PT. Xarelto for VTE prophylaxis d/t recent PE. F/u in office in 2 weeks. Discharge Plan Discharge Plan Patient Disposition: Home Discharge orders & Medications Discharge Orders: Discharge (Order); Ordered 01/11/22 Ordered By: Aruna Lord Prescriptions: New tramadol 50 mg Tablet 50 mg PO Q4-6H Qty: 60 0RF acetaminophen 325 mg Tablet 650 mg PO Q6HR PRN (Reason: fever or pain) Qty: 240 0RF docusate sodium 100 mg Capsule 100 mg PO BID PRN (Reason: constipation) Qty: 60 2RF Xarelto 15 mg tablet 15 mg PO QPM Qty: 42 0RF Rx Instructions: must administer with evening meal Continued lisinopril 40 mg tablet 40 mg PO QDAY Qty: 90 2RF sertraline 100 mg tablet 25 mg PO DAILY atorvastatin [Lipitor] 10 mg tablet 10 mg PO HS Qty: 90 2RF Hold Instructions: taking Anti-fungal medication gabapentin 800 mg tablet 800 mg PO BID Qty: 180 3RF (DME) Disabled Parking Qty: 1 0RF Dose Instruction: As directed Rx Instructions: I find this patient to be medically disabled and qualified for Disabled Parking as indicated, and signed, on the Accompanying Disabled Parking Application for Individuals pantoprazole 40 mg tablet,delayed release (DR/EC) 40 mg PO DAILY Qty: 90 3RF oxybutynin chloride 5 mg tablet extended release 24hr See Rx Instructions .ROUTE .COMPLEX Qty: 90 3RF Dose Instruction: TAKE 1 TABLET BY MOUTH DAILY Rx Instructions: TAKE 1 TABLET BY MOUTH DAILY furosemide 40 mg tablet See Rx Instructions .ROUTE .COMPLEX Qty: 30 2RF Dose Instruction: Take 1 tablet (40 mg) by mouth daily Rx Instructions: Take 1 tablet (40 mg) by mouth daily duloxetine 20 mg capsule,delayed release(DR/EC) 60 mg PO QAM Qty: 270 3RF methotrexate sodium 2.5 mg Tablet 20 mg PO QWEEK Label Comments: 10mg bid on Friday folic acid 1 mg Tablet 1 mg PO DAILY PreserVision AREDS-2 250-90-40-1 mg Capsule 1 tab PO QAM Discontinued tramadol 50 mg tablet 50 mg PO DAILY Qty: 20 0RF ibuprofen [Advil] 200 mg Tablet 400 mg PO BID-TID PRN (Reason: Pain) Follow up/Referrals: Jordyn Montemayor MD [Primary Care Provider] - Margo Adams MD [Physician] - As previously scheduled (Follow up with Dr Adams on 01/23/2022 @ 11:00 am at [facility] in [place].) Diet/Activity/Treatments Diet: Diet as Tolerated Activity: Walk frequently! Cold/Heat Therapy: Ice to knee as needed for pain. Skin/Wound/Dressing Care Report to your healthcare provider any signs of infection, such as:: chills, fever, night sweats, unusual drainage and unusual redness Dressing: May shower; try to keep battery pack out of direct spray. Dressing itself is waterproof. Once batteries , may remove battery pack and discard. Keep dressing in place until follow up appointment in office. No bathing or otherwise soaking incision. Visit Report/Discharge Packet Instructions: DI for Knee Replacement Stand Alone Forms: Surgery Discharge Discharge Data Primary Care Provider: Jordyn Montemayor Attending Provider: Margo Adams Quality VTE Deep Vein Thrombosis/Pulmonary Embolism Present on Admission: No
--- NOTE | 2022-01-11 13:02 | CM.IDA ---
Initial DCP Assessment Note Pt is an 81 yo female, resident of [place], now POD#1 from Left total knee arthroplasty by Dr Adams PCP: [facility]ord[facility], met w/patient to introduce self and role. Patient working w/ PT Michelle, anticipating return home w/family to assist later today DC order from Ortho has already been initiated this morning. Pending PT rec for home No needs expected from DC planning team although will remain available in case this changes today. GABY Pena
--- NOTE | 2022-01-11 14:00 | PT.IPTN ---
Current Diagnoses Unilateral primary osteoarthritis, left knee (01/10/22) Presence of unspecified artificial knee joint (01/10/22) Surgery Performed Operation Date: 01/10/22 10:45 Actual Procedures p Total Knee Arthroplasty(Left) - Margo Adams MD Physical Therapy Treatment Note M2 PT-IP Current Condition Start: 01/11/22 13:08 Freq: NEEDED Status: Discharge Protocol: Document 01/11/22 08:50 AB (Rec: 01/11/22 13:21 AB [id number]) Physical Therapy Current Condition Current Condition Evaluation Date 01/11/22 Treatment Diagnosis s/p L TKA; difficulty in walking Onset Date 01/10/22 M3 PT-IP Subjective Start: 01/11/22 13:08 Freq: NEEDED Status: Discharge Protocol: Document 01/11/22 14:00 AB (Rec: 01/11/22 15:34 AB [id number]) Subjective Physical Therapy Visit Type Type Treatment Note Visit Start Time 14:00 Visit Stop Time 14:53 Total Visit Minutes 53 Number of DISHROOM ATTENDANT Visits 0 Physical Therapy Visit Comments Patient Comments agreeable to do PT Therapy Pain Assessment Pain When Pain Assessed At Rest Pain Present Pain Present Pain Reported Location Left Knee Intensity 5 Scale Used Numeric (0 - 10) Pain Management Techniques Distraction,Modification of Treatment,Re-positioning, Timing of Activity with Medications M4 PT-IP Mobility and Gait Start: 01/11/22 13:08 Freq: NEEDED Status: Discharge Protocol: Document 01/11/22 14:00 AB (Rec: 01/11/22 15:34 AB [id number]) PT-Bed Mobility Assessment Supine to Sit Supine to Sit Standby Assistance PT-Transfer Assessment Sit to and From Stand Sit to and from Stand Contact Guard Assistance,1 Person Assistance,Use of Upper Extremities Equipment Transfer Assistive Device Gait Belt,Front Wheeled Walker Orthotic/Prosthetic Devices or Brace: No Transfers Transfer Destination Chair Transfer Technique ambulated Transfer Ability Level of Assist Contact Guard Assistance,Use of Upper Extremities Comments Mobility Comments daughter in room for caregiver training. educated on how to do heel slides with pt prior to mobility and daughter was able to assist pt. pt completed supine to sit SBA. able to sit on EOB SBA. educated daughter on how to use safety belt and how to assist pt. daughter was able to put safety belt on and assisted pt with sit to stand and ambulation in room using FWW CGA. pt sat on chair. educated daughter on stair climbing techniques and how to assist pt. pt completed sit to stand from chair with daughter assisting CGA and ambulated in the hallway using FWW ~ 75 ft CGA. pt presents with shuffling gait and RLE tends to cross over midline. cued pt to increase LE elevation, to work on heel strike on BLE and to increase step width. pt completed up/down steps holding on to R rail with B hands and daughter was able to assist pt mod A and cues. assisted pt back to her room. pt ambulated from w/c to chair using FWW with daughter assisting. positioned pt on the chair. call light and table placed within reach. informed nurse regarding pain and mobility and assistance for d/c. pt and daughter without further concerns. Gait Assessment Gait Gait Assistance Required: Contact Guard Assist,Minimum Assistance Distance (Feet) 75 Able to Maintain Weight Bearing Status Yes During Gait Assistive Devices Assistive Device Gait Belt,Front Wheeled Walker Orthotic/Prosthetic Devices or Brace: No Gait Deviations General Gait Pattern Antalgic,Decreased Stride Length,Decreased Feet Clearance Factors Limiting Gait Function Factors Limiting Gait Function Decreased Activity Tolerance, Decreased Strength,Limited Range of Motion,Pain,Poor Balance,Poor Safety Awareness Stair Climbing Assessment Evaluation Level of Assist On Stairs Moderate Assistance Devices Stair Climbing Assistive Devices Right Railing Technique/Endurance Stair Climbing Direction Ascend and Descend Number of Steps Climbed 3 Stair Climbing Set # Repetitions (reps) 1 M5 PT-IP Objective Assessments Start: 01/11/22 13:08 Freq: NEEDED Status: Discharge Protocol: Document 01/11/22 08:50 AB (Rec: 01/11/22 13:21 AB [id number]) Orientation Orientation/Cognition Level of Alertness Alert Orientation Name,Age,Birthday,Month,Date, Year,Day of Week,Place, Situation Language Function Ability No Deficits Noted Safety Awareness Understands Safety Issues Memory Description No Deficits Noted Gross Range of Motion Lower Extremity ROM Assessment Left Impaired Impairments L knee flexion: ~ 50 deg Strength Lower Extremity Strength Assessment Left Impaired Hip 4-/5 Knee 3+/5 Coordination Assessment Gross Coordination Gross Coordination WNL Sensation Assessment Sensation Gross Sensation WNL Muscle Tone Muscle Tone WNL Yes M6 PT-IP Treatment Start: 01/11/22 13:08 Freq: NEEDED Status: Discharge Protocol: Document 01/11/22 14:00 AB (Rec: 01/11/22 15:34 AB [id number]) Physical Therapy Treatment Education Education Provided Safety M7 PT-IP Assessment and Plan Start: 01/11/22 13:08 Freq: NEEDED Status: Discharge Protocol: Document 01/11/22 14:00 AB (Rec: 01/11/22 15:34 AB [id number]) PT Summary Assessment and Plan Potential Rehabilitation Potential Good Summary Impairments Pain,ROM,Strength,Balance, Coordination,Sensation,Tone, Cognition,Bed Mobility, Transfers,Gait,Activity Tolerance Progress Towards Goals Slow Progress due to Pain Assessment Summary caregiver training conducted and daughter is able to assist pt safely. pt plans to go home and daughter to assist. has outpt PT scheduled. Goals Bed Mobility Goal Independent Transfer Goal Independent Gait Goal Independent Gait Distance 150 Other Goals up/down 3 steps R rail SBA Days to Meet Goals 5 Frequency of Treatment Frequency Of Treatment Twice a Day Treatment Plan Physical Therapy Treatment Plan Bed Mobility Training,Transfer Training,Gait Training, Therapeutic Exercise,Balance Retraining,Post Op Education, Discharge Planning,Hot or Cold Pack,Neuromuscular Re-ed, Coordination Retraining,Manual Therapy Weight Bearing Status Weight Bearing Status Weight Bear as Tolerated Allowed Weight Bearing Amount (enter % LLE WBAT or #) (%) Recommendations To Nursing Amount of Assist Needed 1 Person Assist Discharge Recommendations PT Discharge Recommendations Home with Assistance, Outpatient PT Transportation Needs at Discharge Private Vehicle
--- NOTE | 2022-01-11 15:20 | PC.NURSE ---
Pt is A&Ox3. She denies nausea this a.m. She states she feels hungry and tolerates breakfast and lunch well. She is able to ambulate to BR with FWW and is voiding without difficulty. Minimal drainage to hemovac. PT works with patient this a.m. and clears her for discharge home with daughter. Ortho PA at bedside evaluating patient clears her for discharge today. Her daughter arrives this afternoon and PT returns for second session to provide caregiver training. Pt reports pain is well controlled with tylenol, ibuprofen and tramadol and denies wanting oxycodone reporting she is sensitive to it and worried about n/v. Her hemovac and IV are dc'd. She verbalizes understanding of medications, activity, site care, s/sx of infection/complications as well as follow up care. She is escorted via w/ch with all of her belongings to private vehicle with her daughter for discharge home at 1520.
== END 2022-01-11 15:20 | disposition home or self-care (01) ==
LOC: OR 08:46 → AC 08:46
PROVIDERS: PCP Family Medicine; Referring Provider Orthopaedic Surgery; Visit Provider Orthopaedic Surgery
PROC: 0SRD0JZ Replacement of Left Knee Joint with Synthetic Substitute, Open Approach (ICD-10-PCS; CPT 27447; principal; 2022-01-10 10:45)
DX: M17.12 Unilateral primary osteoarthritis, left knee (principal); I10 Essential (primary) hypertension; E78.5 Hyperlipidemia, unspecified; K21.9 Gastro-esophageal reflux disease without esophagitis; E66.9 Obesity, unspecified; J44.9 Chronic obstructive pulmonary disease, unspecified; Z86.711 Personal history of pulmonary embolism; Z86.16 Personal history of COVID-19
CPT/HCPCS: 27447; 36415; 85014; 85018; 94760; 94762; 97162; 97530; C1776; C1713; C9290; J0171; J0690; J1100; J1170; J2274; J2405; J2704; J3010

== ENCOUNTER → 2022-02-14 10:25 | Outpatient (CLI) | payer OTHER, SELFPAY ==
[2022-01-10 15:30] VITALS: BMI 34.0
[2022-02-14 12:19] LABS: Hematocrit 27.5 % (36-46); Hemoglobin 8.9 g/dL (12.0-16.0)
[2022-02-14 12:50] LABS: Alanine Aminotransferase 18 IU/L (<35); Albumin 3.7 g/dL (3.5-5.0); Albumin Globulin Ratio 1.2 (1.0-2.8); Alkaline Phosphatase 89 U/L (38-126); Aspartate Aminotransferase 28 IU/L (14-36); BUN Creatinine Ratio 17.4 (6-22); Bilirubin Total 0.3 mg/dL (0.2-1.3); Blood Urea Nitrogen 20 mg/dL (7-17); Calcium 9.2 mg/dL (8.4-10.2); Carbon Dioxide 28 mmol/L (22-32); Chloride 107 mmol/L (98-107); Estimated Glomerular Filt Rate 48 mL/min (>60); Globulin 3.1 g/dL (1.7-4.1); Glucose 93 mg/dL (80-110); HEMOLYSIS < 15 (0-50); Sodium 140 mmol/L (137-145); Total Protein 6.8 g/dL (6.3-8.2)
[2022-02-14 15:15] LABS: HEMOLYSIS < 15 (0-50); Iron 44 ug/dL (37-170)
[2022-02-14 15:26] LABS: Percent Iron Saturation 12 % (15-50); Total Iron Binding Capacity 356 ug/dL (265-497); Transferrin 274 mg/dL (206-381)
[2022-02-14 15:44] LABS: TSH w/ Reflex to FT4 1.42 uIU/mL (0.47-4.68)
== END ==
PROVIDERS: PCP Family Medicine; Referring Provider Physician Assistant; Visit Provider Physician Assistant
DX: D64.9 Anemia, unspecified (principal); R53.83 Other fatigue; R68.89 Other general symptoms and signs; R79.0 Abnormal level of blood mineral; I10 Essential (primary) hypertension
CPT/HCPCS: 36415; 80053; 83540; 83550; 84443; 85014; 85018

== ENCOUNTER → 2022-03-06 15:29 | Outpatient (CLI) | payer OTHER, SELFPAY ==
[2022-01-10 15:30] VITALS: BMI 34.0
[2022-03-06 16:22] LABS: Add Manual Diff / Slide Review NO; Basophils Absolute Auto 100 /uL (0-100); Basophils Percent Auto 0.9 % (0-2); Eosinophils Absolute Auto 100 /uL (0-450); Hematocrit 27.1 % (36-46); Hemoglobin 8.9 g/dL (12.0-16.0); Lymphocytes Absolute Auto 1300 /uL (1100-4500); Lymphocytes Percent Auto 19.2 % (25-40); Mean Corpuscular HGB Conc 32.8 % (30-36); Mean Corpuscular Hemoglobin 26.2 PG (26-34); Monocytes Absolute Auto 200 /uL (0-900); Monocytes Percent Auto 3.8 % (3-14); Neutrophils Absolute Auto 4900 /uL (1500-7000); Neutrophils Percent Auto 75.1 % (50-75); Platelet Count 315 X10^3/uL (150-400); Red Blood Cell Count 3.39 X10^6/uL (4.0-5.2); White Blood Cell Count 6.6 X10^3/uL (4.5-11.0)
[2022-03-06 16:40] LABS: Alanine Aminotransferase 17 IU/L (<35); Albumin Globulin Ratio 1.3 (1.0-2.8); Alkaline Phosphatase 96 U/L (38-126); Aspartate Aminotransferase 25 IU/L (14-36); BUN Creatinine Ratio 20.6 (6-22); Bilirubin Total 0.3 mg/dL (0.2-1.3); Blood Urea Nitrogen 22 mg/dL (7-17); C-Reactive Protein Quant 0.7 mg/dL (<1.0); Calcium 9.6 mg/dL (8.4-10.2); Carbon Dioxide 30 mmol/L (22-32); Chloride 107 mmol/L (98-107); Estimated Glomerular Filt Rate 53 mL/min (>60); Globulin 3.2 g/dL (1.7-4.1); Glucose 130 mg/dL (80-110); HEMOLYSIS < 15 (0-50); Sodium 143 mmol/L (137-145); Total Protein 7.2 g/dL (6.3-8.2)
[2022-03-06 18:19] LABS: Erythrocyte Sedimentation Rate 30 MM/HR (0-20)
== END ==
PROVIDERS: PCP Family Medicine; Referring Provider Specialist/Technologist Athletic Trainer; Visit Provider Specialist/Technologist Athletic Trainer
DX: M05.9 Rheumatoid arthritis with rheumatoid factor, unspecified (principal)
CPT/HCPCS: 36415; 80053; 85025; 85651; 86140

== ENCOUNTER → 2022-05-22 14:51 | Outpatient (CLI) | payer OTHER, SELFPAY ==
[2022-01-10 15:30] VITALS: BMI 34.0
--- NOTE | 2022-05-22 14:52 | DI.RAD.S_ITS ---
PROCEDURE: XR CHEST 2V INDICATIONS: SOB TECHNIQUE: 2 views of the chest were acquired. COMPARISON: [facility], , XR CHEST 2V, 07/17/2021, 13:17. FINDINGS: Surgical changes and devices: Surgical clips in the right upper quadrant Lungs and pleura: Lungs are clear. No pleural effusions or pneumothorax. Mediastinum: Mediastinal contours are normal. Heart size is enlarged. Bones and chest wall: No suspicious bony abnormalities. Soft tissues appear unremarkable. IMPRESSION: Cardiomegaly without vascular congestion Approved by: Chapincito Soto M.D. on 05/22/2022 at 18:25
== END ==
PROVIDERS: PCP Family Medicine; Referring Provider Family Medicine; Visit Provider Family Medicine
DX: I51.7 Cardiomegaly (principal); R06.02 Shortness of breath
CPT/HCPCS: 71046

== ENCOUNTER → 2022-07-16 14:16 | Outpatient (CLI) | payer OTHER, SELFPAY ==
[2022-01-10 15:30] VITALS: BMI 34.0
--- NOTE | 2022-07-16 14:19 | DI.CT.S_ITS ---
PROCEDURE: CT ANGIO CHEST PE PROTOCOL INDICATIONS: Prior pulmonary embolism. Please evaluate for PE TECHNIQUE: After the administration of intravenous contrast, 2 mm thick sections acquired from the pulmonary apices to the posterior costophrenic angles. 3-dimensional maximum intensity projection (MIP) coronal and sagittal reformats were then acquired through the thorax. For radiation dose reduction, the following was used: automated exposure control, adjustment of mA and/or kV according to patient size. COMPARISON: [facility], CT, CT ANGIO CHEST PE PROTOCOL, 08/01/2021, 12:08. [facility], CR, XR CHEST 2V, 05/22/2022, 14:53. [facility], CR, XR CHEST 2V, 07/17/2021, 13:17. FINDINGS: Image quality: Excellent. Pulmonary arteries: Pulmonary arteries are normal in size, and demonstrate no intraluminal filling defects to suggest central pulmonary embolism. Lungs and pleura: Mild dependent atelectasis can be seen. No pleural effusions or pneumothorax. Central and peripheral airways are patent. Mediastinum: Heart size is normal. There is a small pericardial effusion. Moderate coronary artery calcification can be seen. No mediastinal or hilar adenopathy. Thoracic aorta is normal in caliber and enhancement. Esophagus is normal in caliber, without hiatal hernia. Bones and chest wall: No suspicious bony lesions. Ribs and thoracic spine appear intact throughout. Age-appropriate bony degenerative changes are seen. Thyroid gland demonstrates nodules on both sides, with the largest seen on the left measuring 1.6 cm. No axillary or supraclavicular adenopathy. Abdomen: Cholecystectomy clips are seen. Generalized thickening can be seen of the adrenal glands, yet without focal adrenal nodules. Incidental note is made of an accessory splenule along the hilum of the primary spleen. The visualized portions of the upper abdominal structures are otherwise unremarkable for imaging technique. IMPRESSION: Negative for pulmonary embolism. Small pericardial effusion, as before. Bilateral thyroid nodules are seen. If clinically appropriate, please consider a follow-up thyroid ultrasound for further evaluation. Additional findings: Moderate coronary artery calcification Cholecystectomy clips Generalized adrenal gland thickening Accessory splenule Dictated by: Mynor Akers M.D. on 07/16/2022 at 15:12 Approved by: Mynor Akers M.D. on 07/16/2022 at 15:15
[2022-07-16 15:05] LABS: Estimated Glomerular Filt Rate > 60 mL/min (>60)
--- NOTE | 2022-07-16 15:19 | DI.ECHO.S_ITS ---
[facility] +---------+ : : [address] [place] : : : : [id number] : : : : Phone: [phone]+ Echocardiogram Report + + :Name: MITUL EPSTEIN Study Date: 07/16/2022 Height: 66 in : :[facility] ReadingLocation: Weight: 205 lb: : Gender: Female BSA: 2.0 m2 : :: 1940 Age: 81 yrs : :Reason For Study: SOB, CARDIOMEGALY ON CXR : :Ordering Physician: LINDA, : :BOYD Performed By: Gabriella Johnson : :Referring: BOYD MCKEON : + + Interpretation Summary 1) Mildly increased left ventricular thickness (concentric) with mildly increased size and low normal systolic function (EF 50-55%). 2) The right ventricle is normal in size and function. 3) Diastolic parameters suggest a pseudonormalization pattern, consistent with probable elevated filling pressures. 4) No significant valvular abnormalities. 5) The right ventricular systolic pressure is estimated to be at least 38 mmHg based on an estimated right atrial pressure of 3 mm Hg. 6) Compared to the Echo done 08/02/2021, LV is mildly enlarged and EF has reduced slightly from 55-60% to 50-55% on this study. Procedure: A two-dimensional transthoracic echocardiogram with color flow and Doppler was performed. The study quality was technically adequate. Comparison is made with the echocardiogram of 08/02/2021. The heart rate ranged between 77-90 bpm during the study. Left Ventricle: There is mild concentric left ventricular hypertrophy. The left ventricle is mildly dilated. The ejection fraction is estimated to be 50- 55%. There are no focal wall motion abnormalities. Diastolic parameters suggest a pseudonormalization pattern, consistent with probable elevated filling pressures. Right Ventricle: The right ventricle is normal in size and function. Atria: The left atrium is moderately dilated. Right atrial size is normal. There is no Doppler evidence for an interatrial shunt. Mitral Valve: There is mild mitral annular calcification. The mitral valve leaflets appear mildly thickened, but open well. There is trace mitral regurgitation. Aortic Valve: The aortic valve is trileaflet. The aortic valve opens well. There is no aortic valve stenosis. There is trace aortic regurgitation. Tricuspid Valve: The tricuspid valve is normal in structure and function. There is mild tricuspid regurgitation. The right ventricular systolic pressure is estimated to be at least 38 mmHg based on an estimated right atrial pressure of 3 mm Hg. Pulmonic Valve: The pulmonic valve leaflets are thin and pliable; valve motion is normal. There is mild pulmonic regurgitation. Great Vessels: The aortic root is normal size. The dimensions of the ascending aorta are normal. The IVC is of normal diameter and collapses greater than 50% with a sniff. This suggests a low right atrial pressure of 3 mm Hg. Pericardium/ Pleura There is no pericardial effusion. There is no pleural effusion. MMode/2D Measurements & Calculations LVIDd: 5.8 cm LVOT diam: 2.2 cm LVIDs: 3.6 cm Ao root diam: 3.4 cm FS: 38.4 % asc Aorta Diam: 3.3 cm EPSS: 0.80 cm Ao Arch Diam (Prox Trans): 1.7 cm IVSd: 1.1 cm LVPWd: 1.3 cm LV mata. diameter/BSA (cm/m^2): 2.9 LV sys. diameter/BSA (cm/m^2): 1.8 LA A2 area: 27.3 cm2 RA long axis: 5.9 cm LA A4 area: 25.4 cm2 RA area: 20.9 cm2 LA length (vol): 6.1 cm RA vol: 63.0 ml LA vol: 96.7 ml RA : 31.2 ml/m2 LA vol index: 47.8 ml/m2 IVC diam: 1.7 cm RVD1 (basal): 3.5 cm RVD2 (mid): 3.1 cm TAPSE: 2.4 cm Doppler Measurements & Calculations Ao V2 max: 173.5 cm/sec LVOT Max Len: 110.5 cm/sec Ao V2 mean: 111.5 cm/sec LV V1 max P.9 mmHg Ao max P.0 mmHg LV V1 VTI: 22.3 cm Ao mean P.8 mmHg DECLAN(I,D): 2.6 cm2 Ao V2 VTI: 31.4 cm DECLAN(V,D): 2.3 cm2 sev ratio: 0.71 DECLAN indexed to BSA (cm^2/m^2): 1.3 MV E max len: 91.6 cm/sec TR max len: 297.2 cm/sec MV A max len: 139.5 cm/sec TR max P.3 mmHg MV E/A: 0.66 PA V2 max: 106.7 cm/sec Med Peak E' Len: 5.0 cm/sec PA V2 mean: 80.2 cm/sec E/E' med: 18.2 PA mean P.8 mmHg Lat Peak E' Len: 4.5 cm/sec PA pr(Accel): 37.9 mmHg E/E' lat: 20.3 E/e' average: 19.2 MV dec time: 0.18 sec SV(LVOT): 81.3 ml Reading Physician:05:03 PM
== END ==
PROVIDERS: PCP Family Medicine; Referring Provider Family Medicine; Visit Provider Family Medicine
DX: I51.7 Cardiomegaly (principal); R06.02 Shortness of breath; R60.9 Edema, unspecified; I31.39 Other pericardial effusion (noninflammatory); I25.10 Atherosclerotic heart disease of native coronary artery without angina pectoris; E04.2 Nontoxic multinodular goiter; Z86.711 Personal history of pulmonary embolism
CPT/HCPCS: 36415; 71275; 82565; 93306

== ENCOUNTER → 2022-08-21 14:36 | Outpatient (CLI) | payer OTHER, SELFPAY ==
[2022-01-10 15:30] VITALS: BMI 34.0
[2022-08-21 16:31] LABS: Add Manual Diff / Slide Review NO; Basophils Absolute Auto 100 /uL (0-100); Eosinophils Absolute Auto 200 /uL (0-450); Eosinophils Percent Auto 2.2 % (2-4); Hemoglobin 11.7 g/dL (12.0-16.0); Lymphocytes Absolute Auto 1600 /uL (1100-4500); Lymphocytes Percent Auto 23.4 % (25-40); Mean Corpuscular HGB Conc 32.6 % (30-36); Mean Corpuscular Hemoglobin 28.3 PG (26-34); Mean Corpuscular Volume 86.9 fL (80-100); Monocytes Absolute Auto 300 /uL (0-900); Monocytes Percent Auto 4.9 % (3-14); Neutrophils Absolute Auto 4700 /uL (1500-7000); Neutrophils Percent Auto 68.5 % (50-75); Platelet Count 278 X10^3/uL (150-400); Red Blood Cell Count 4.14 X10^6/uL (4.0-5.2); Red Cell Distribution Width 17.1 % (11.6-14.8); White Blood Cell Count 6.8 X10^3/uL (4.5-11.0)
[2022-08-21 16:36] LABS: Hemoglobin A1C% w Est Avg Glu 5.3 % (4.0-6.0)
[2022-08-21 17:02] LABS: HEMOLYSIS < 15 (0-50); Iron 38 ug/dL (37-170)
[2022-08-21 17:04] LABS: BUN Creatinine Ratio 25.5 (6-22); Blood Urea Nitrogen 24 mg/dL (7-17); Calcium 9.8 mg/dL (8.4-10.2); Carbon Dioxide 25 mmol/L (22-32); Chloride 103 mmol/L (98-107); Estimated Glomerular Filt Rate > 60 mL/min (>60); Glucose 79 mg/dL (80-110); HEMOLYSIS < 15 (0-50); Potassium 4.5 mmol/L (3.4-5.1); Sodium 139 mmol/L (137-145)
[2022-08-21 17:16] LABS: Percent Iron Saturation 10 % (15-50); Total Iron Binding Capacity 366 ug/dL (265-497); Transferrin 264 mg/dL (206-381)
[2022-08-21 17:41] LABS: Ferritin 41 ng/mL (11-264)
[2022-08-21 18:03] LABS: Appearance Urine UA SL CLOUDY; Bilirubin Urine UA NEGATIVE (NEGATIVE); Color Urine UA YELLOW; Glucose Urine UA NEGATIVE (Negative); Ketones Urine UA NEGATIVE (NEGATIVE); Leukocyte Esterase Urine UA 2+ (NEGATIVE); Nitrite Urine UA POSITIVE (Negative); Occult Blood Urine UA NEGATIVE (Negative); Protein Urine UA NEGATIVE (Negative); Urobilinogen Urine UA 0.2 E.U./dL (0.2)
[2022-08-21 18:09] LABS: pH Urine UA 5.5 (4.5-8.0)
[2022-08-21 18:13] LABS: Folate > 20.0 ng/mL (2.76-20.0); Vitamin B12 702 pg/mL (239-931)
[2022-08-21 18:17] LABS: Amorphous Sediment Urine 1+; Bacteria Urine Many (>30); Culture Indicated Urine Specimen Cultured; Mucus Urine 1+ (Negative); RBC Urine 0-1/HPF (0-5/HPF); Squamous Epithelial Cell Urine 5-10 /HPF (0-5/HPF); Transitional Epi Cells Urine 5-10/HPF (0-5/HPF); WBC Urine 30-100/HPF (0-5/HPF)
== END ==
PROVIDERS: PCP Family Medicine; Referring Provider Physician Assistant; Visit Provider Physician Assistant
DX: Z01.818 Encounter for other preprocedural examination (principal); D50.9 Iron deficiency anemia, unspecified; R73.9 Hyperglycemia, unspecified; Z01.812 Encounter for preprocedural laboratory examination; N39.0 Urinary tract infection, site not specified
CPT/HCPCS: 36415; 80048; 81001; 82607; 82728; 82746; 83036; 83540; 83550; 85025; 87077; 87086; 87186; 93005; 93010

== ENCOUNTER 2022-10-10 06:29 | Day surgery (SDC) | payer OTHER, SELFPAY ==
[2022-01-10 15:30] VITALS: BMI 34.0
[2022-10-01 09:40] VITALS: BMI 32.3
[2022-10-10] VITALS (12 sets, daily range): BP systolic 121–188; BP diastolic 61–93; PULSE 66–81; RESP 12–18; TEMP 36–36.8; O2SAT 90–98; BMI 32.3
--- NOTE | 2022-10-10 06:29 | DI.RAD.S_ITS ---
PROCEDURE: XR KNEE RT 1TO2V INDICATIONS: prosthesis placement TECHNIQUE: 2 view(s) of the knee acquired. COMPARISON: [facility], CR, XR KNEE LT 3V, 03/19/2021, 15:31. FINDINGS: Bones: Patient is status post knee joint arthroplasty. Hardware components are in expected positions. Visualized bony structures are intact. Soft tissues: Overlying postoperative changes are noted. IMPRESSION: Expected immediate postoperative appearance, status post total right knee arthroplasty. Dictated by: Abraham Smith M.D. on 10/10/2022 at 10:45 Approved by: Abraham Smith M.D. on 10/10/2022 at 10:46
[2022-10-10] MEDS: ACETAMINOPHEN 325 MG TABLET 975 MG PO (07:05)
[2022-10-10] MEDS: CELECOXIB 200 MG CAPSULE PO (07:05)
[2022-10-10] MEDS: PREGABALIN 75 MG CAPSULE PO (07:06)
[2022-10-10] MEDS: VANCOMYCIN 1,000 MG/200 ML PIGGYBACK 200 MG IV (07:06)
[2022-10-10] MEDS: LACTATED RINGERS 1,000 ML 42 ML IV (07:07)
--- NOTE | 2022-10-10 07:29 | P.OP_ITS ---
Operative Date/Time/Diagnoses Date of procedure: 10/10/22 Time of procedure: 07:55 Pre-op diagnosis: right knee OA Post-op diagnosis: same Procedure & Clinicians Procedure: Right total knee arthroplasty Same procedure as scheduled: Yes Indications: The patient has had progressively worsening right knee pain with radiographic changes consistent with arthritis. Non-operative management has failed and the patient has requested total knee replacement. The risks, benefits and alternatives to surgery were discussed with the patient prior to proceeding. Risks discussed included, but were not limited to, failure to relieve pain, stiffness, infection, nerve damage, deep venous thrombosis, pulmonary embolism, stroke, coma, heart attack, permanent paralysis and , as well as the potential need for eventual revision of the prosthetic. Surgeon: Margo Adams Coffee Brewer: Ryan Robison Click Yes if Unassisted: Yes Anesthesia Type: Spinal Operative Notes Findings: Severe right hip osteoarthritis, adequate stability, adequate bone Closure Type: primary Specimen(s): none sent Prosthetic devices, grafts, tissues, transplants, or devices: Adams and nephew [facility] BCS 2 Adams and nephew size 5 femur, size 4 tibia, 35 x 7-1/2 mm patella, +9 poly Estimated Blood Loss (mL): 200 Blood products transfused: none Tourniquet time (min): 84 Procedure in detail: The patient was seen in the pre-operative area, where the patient identified the right knee as the operative site and this was marked with my initials. The patient received pre-operative antibiotics, and was taken to the operating room and placed on the operative table in the supine position. After satisfactory anesthesia, a nozzle worker out was performed. The right leg was encircled with a tourniquet about the proximal thigh, and the leg was prepared from the toes to the tourniquet with ChloroPrep in the usual fashion and draped through sterile drapes. The leg was elevated and exsanguinated with Eschmark bandage and the tourniquet inflated to [250] mmHg pressure. The knee was approached through an approximately 18 cm incision centered over the patella and carried into the knee through a medial parapatellar arthrotomy. A portion of the medial and lateral meniscus was resected. Soft tissue was carefully mobilized around the patella the patella was measured with a caliper. Bone was resected from the patella and the patellar height was reconstituted with up an appropriate sized patellar component. A cover was then placed on the patella. A small amount of additional medial and lateral meniscus was resected. The distal femur was cut at 5?. A [+2] cut was used. It looked like an appropriate distal femoral cut and the cut was made without difficulty. An extramedullary guide was used for the tibial cut. 10 mm was resected off the least affected side.The tibia was prepared. The rotation was assessed. The patient was placed in extension residual medial and lateral meniscus as well as any residual bone was carefully resected. [No] additional tibia was resected. Hemostasis was achieved especially posteriorly. Additional local was injected into the posterior capsule. The extension gap was assessed and additional releases for gap balancing were performed as necessary. It was checked with the gap senior linux systems administrator. The femoral component was trial was placed and the notch was finished. The rotation was assessed and the appropriate size femoral guide was placed on the distal femur and finishing cuts were made. There is no evidence of notching. The anterior, posterior and chamfer cuts were then made. The posterior osteophytes and soft tissues were then removed. The posterior capsule was injected with part of a mixture of 60 ml 0.25% Marcaine mixed with 20 ml Exparel for post operative pain control. The remainder of this mixture was injected into the capsule and subcutaneous tissues during cement curing. The tibial and femoral components were then placed and the knee placed through a range of motion. Range of motion was [0-130], with good stability throughout the range. The trials were then removed, and the tibia was finished. The bone was prepared with pulsatile lavage, and dried with a sponge. Cement was applied and the final prosthetics placed. Excess cement was removed during and after cement curing. A brief Betadine soak was performed. After confirming there was no extruded cement posteriorly, the final tibial insert was placed. The knee was copiously irrigated and the tourniquet deflated. Hemostasis was obtained with the Bovie cautery. The capsule was closed with interrupted nonabsorbable suture. The subcutaneous layer was closed with barbed sutures, and the skin with a running 3-0 V-Lock suture and Surgical glue. An Aquacel Ag dressing was applied and the patient was taken to recovery having tolerated the procedure well. Complications: none Post-operative Condition: stable Disposition: Acute Care Plan for aftercare: The patient will be maintained on a standard total knee replacement protocol wit h weight bearing as tolerated. The patient will receive aspirin and sequential compression devices for DVT prophylaxis. The patient will be discharged home when safe for the home environment.
--- NOTE | 2022-10-10 07:29 | PM.PREOP ---
Pre-operative Note COVID-19 COVID-19 status: Negative Interval Note History & Physical reviewed/Exam performed by Physician: Yes Changes to H&P: No
[2022-10-10 07:59] LABS: COVID19 -Nasal RAPID Negative (Negative)
[2022-10-10] MEDS: CEFAZOLIN 2 GM/100 ML PREMIX 100 ML IV ×2 (08:08→15:04)
--- NOTE | 2022-10-10 08:20 | SUR.OPER ---
Supine on padded OR bed, head on pillow, arms secured on padded arm boards at <90 degrees abduction, legs uncrossed, safety belt at abdomen, tape over blanket over lower left leg. Gel roll under left arm/hand.
[2022-10-10] MEDS: BUPIVACAINE 0.25% (PF) 60 ML, EPINEPHrine 0.3 MG INJ (08:29)
[2022-10-10] MEDS: BUPIVACAINE LIPOSOME 266 MG/20 ML VIAL INJ (08:30)
[2022-10-10] MEDS: LACTATED RINGERS 1,000 ML 100 ML IV ×2 (10:50→21:48)
[2022-10-10] MEDS: IBUPROFEN 400 MG TABLET PO ×4 (11:50→21:48)
[2022-10-10] MEDS: GABAPENTIN 400 MG CAPSULE 800 MG PO (11:54)
[2022-10-10] MEDS: OXYCODONE IR 10 MG TABLET PO ×3 (11:55→21:49)
[2022-10-10] MEDS: ACETAMINOPHEN 325 MG TABLET 650 MG PO ×2 (11:56→17:58)
[2022-10-10] MEDS: OXYCODONE IR 5 MG TABLET PO ×2 (12:36→15:40)
--- NOTE | 2022-10-10 17:46 | PT.IIE ---
Current Diagnoses Unilateral primary osteoarthritis, right knee (10/10/22) Surgery Performed Operation Date: 10/10/22 07:45 Actual Procedures p Total Knee Arthroplasty(Right) - Margo Adams MD Surgical History (Last Updated 10/01/22 @ 09:51 by Zoey Machado RN) Anesthesia History of carpal tunnel repair (1989) History of hip replacement (2003) History of hip replacement (2006) History of hip replacement (2010) History of spinal surgery (2015) History of spinal surgery (2005) History of total left knee replacement (01/10/22) Hx of bilateral cataract extraction Status post knee surgery (2003) Status post laminectomy (2005) Medical History (Last Updated 08/21/22 @ 14:18 by ANA DanielsC) Acute respiratory failure with hypoxia COPD (chronic obstructive pulmonary disease) (2015) COVID-19 virus infection (05/2021) CTS (carpal tunnel syndrome) (1988) Fractures (2014) GI bleed (2021) Glaucoma (2013) Hayfever (1999) Morbid (severe) obesity due to excess calories Osteoarthritis Pneumonia due to COVID-19 virus Pulmonary embolism (07/2021) Retinal detachment (2013) Physical Therapy Inpatient Evaluation/Re-Eval M1 PT/OT-IP Prior Functional Status Start: 10/10/22 17:48 Freq: NEEDED Status: Active Protocol: Document 10/10/22 17:08 DCW (Rec: 10/10/22 17:59 DCW [id number]) Medical Review Prior Functional Status Medical History Reviewed Yes Diet/Fluid Consistency Regular Communication WNL Mobility and Gait Uses 4WW or occasionally SPC at baseline Social History Household Members children Living Arrangements House Number of Floors (Floors) One Floor Number of Stairs To Enter/Railing? 3 DAVID with right ascending railing Home Equipment Four Wheel Walker,Straight Cane M2 PT-IP Current Condition Start: 10/10/22 17:48 Freq: NEEDED Status: Active Protocol: Document 10/10/22 17:08 DCW (Rec: 10/10/22 17:59 DCW [id number]) Physical Therapy Current Condition Current Condition Evaluation Date 10/10/22 Treatment Diagnosis R TKA Onset Date 10/10/22 M3 PT-IP Subjective Start: 10/10/22 17:48 Freq: NEEDED Status: Active Protocol: Document 10/10/22 17:08 DCW (Rec: 10/10/22 17:59 DC [id number]) Subjective Physical Therapy Visit Type Type Initial Evaluation Visit Start Time 17:08 Visit Stop Time 17:46 Total Visit Minutes 38 Notes Pt eager to get up and work with PT, has already been up with nursing to bathroom three times. Daughter in room during session. Number of AVIONICS SYSTEMS REPAIRER Visits 0 Physical Therapy Visit Comments Patient Comments Pt noting minimal pain at the knee, does admit that the muscle above the knee is what is really bothering me. Patient Goals Return home Therapy Pain Assessment Pain When Pain Assessed During Weight Bearing Pain Present Pain Present Denied Pain M4 PT-IP Mobility and Gait Start: 10/10/22 17:48 Freq: NEEDED Status: Active Protocol: Document 10/10/22 17:08 DCW (Rec: 10/10/22 17:59 DCW [id number]) PT-Bed Mobility Assessment Supine to Sit Supine to Sit Standby Assistance Sit to Supine Sit to Supine Standby Assistance Scooting Scooting to Edge of Bed Standby Assistance Scooting Up and Down in Bed Standby Assistance PT-Transfer Assessment Sit to and From Stand Sit to and from Stand Standby Assistance Equipment Transfer Assistive Device Bed Rail,Gait Belt,Front Wheeled Walker Transfer Ability Level of Assist Standby Assistance Comments Mobility Comments Pt able to perform all bed mobility and transfers SBA, did well getting up to EOB and then into standing with FWW, ambulated into restroom with assistance for line management , performed toileting and ant care independently, as well as standing at sink without UE assistance for hand washing Gait Assessment Gait Gait Assistance Required: Standby Assistance Distance (Feet) 80 Able to Maintain Weight Bearing Status Yes During Gait Assistive Devices Assistive Device Gait Belt,Front Wheeled Walker Gait Deviations General Gait Pattern Antalgic,Decreased Stride Length,Flexed Trunk Factors Limiting Gait Function Factors Limiting Gait Function Decreased Strength,Limited Range of Motion,Pain Comments Gait Comments Ambulated out into hallway 40' , noted she was fatiguing, and able to get back to her room, all using FWW SBA. Able to properly keep walker moving consistently, without needing to stop and fully support body with UEs. M5 PT-IP Objective Assessments Start: 10/10/22 17:48 Freq: NEEDED Status: Active Protocol: Document 10/10/22 17:08 DCW (Rec: 10/10/22 17:59 [facility] [id number]) Orientation Orientation/Cognition Level of Alertness Alert Orientation Name,Birthday,Month,Date,Year, Place,Situation Language Function Ability No Deficits Noted Safety Awareness Understands Safety Issues Memory Description No Deficits Noted Gross Range of Motion Lower Extremity ROM Assessment Right Impaired Impairments in sitting, right knee AROM 10 ?-86? Strength Lower Extremity Strength Assessment Right Impaired Muscle Tone Comments Muscle Tone Comments Pt able to properly contract quad upon command M6 PT-IP Treatment Start: 10/10/22 17:48 Freq: NEEDED Status: Active Protocol: Document 10/10/22 17:08 DC (Rec: 10/10/22 17:59 [facility] [id number]) Physical Therapy Treatment Exercises Exercises Ankle Pumps,Quad Sets,Heel Slides,Straight Leg Raises, Seated Knee Flexion/Extension Education Education Provided Weight Bearing Status,Post-Op Packet,Safety M7 PT-IP Assessment and Plan Start: 10/10/22 17:48 Freq: NEEDED Status: Active Protocol: Document 10/10/22 17:08 [facility] (Rec: 10/10/22 17:59 [facility] [id number]) PT Summary Assessment and Plan Potential Rehabilitation Potential Excellent Status of Condition at Evaluation Stable Summary Impairments Pain,ROM,Strength,Gait, Activity Tolerance Assessment Summary Pt doing very well day of surgery, able to perform all bed mobility, transfers, and gait SBA, only really needing assistance for line-management . Pt in good spirits, noting minimal pain in knee, only some quad soreness. Pt able to properly demonstrate all post -op HEP. Pt has good support at home. Will likely be safe to return home upon discharge, although first should demonstrate ability to ascend/ descend 3 steps. Pt left in room with call peter within reach, dinner on tray in front of her, and daughter remained in room. Goals Bed Mobility Goal Independent Transfer Goal Independent Gait Goal Independent Gait Distance 200' Other Goals Ascend/descend 3 steps using R ascending rail Days to Meet Goals 2 Frequency of Treatment Frequency Of Treatment Twice a Day Treatment Plan Physical Therapy Treatment Plan Gait Training,Therapeutic Exercise,Balance Retraining, Post Op Education,Discharge Planning Other Recommendations and Next Treatment Ambulation and stairs Focus Recommendations To Nursing Amount of Assist Needed Standby Assistance Discharge Recommendations PT Discharge Recommendations Home with Assistance, Outpatient PT Transportation Needs at Discharge Private Vehicle
--- NOTE | 2022-10-10 19:33 | PC.NURSE ---
Pt arrived to the floor from PACU after having a R knee replacement at 1045. Pt is A&Ox4, VSS, pt has cell phone, upper and lower dentures, cell phone foam charger and clothes and shoes. Pt was oriented to the room and how to use the call peter. Dressing is clean dry and intact.
[2022-10-10] MEDS: DOCUSATE 100 MG CAPSULE PO (21:48)
[2022-10-10] MEDS: ASPIRIN EC 81 MG TABLET PO (21:48)
[2022-10-10] MEDS: ATORVASTATIN 20 MG TABLET 10 MG PO (21:51)
[2022-10-11] VITALS: BP 139/63; PULSE 77; RESP 18; TEMP 36.9; O2SAT 93
[2022-10-11] MEDS: CEFAZOLIN 2 GM/100 ML PREMIX 100 ML IV (00:01)
[2022-10-11] MEDS: IBUPROFEN 400 MG TABLET PO ×2 (02:09→06:09)
[2022-10-11 05:00] VITALS: BP 135/56; PULSE 67; RESP 18; TEMP 36.5; O2SAT 97
[2022-10-11] MEDS: ACETAMINOPHEN 325 MG TABLET 650 MG PO ×2 (06:09)
[2022-10-11 06:48] LABS: Hematocrit 28.9 % (36-46); Hemoglobin 9.6 g/dL (12.0-16.0)
[2022-10-11] MEDS: DOCUSATE 100 MG CAPSULE PO (08:12)
[2022-10-11] MEDS: ASPIRIN EC 81 MG TABLET PO (08:12)
[2022-10-11 08:16] VITALS: BP 113/55; PULSE 71; RESP 16; TEMP 36.6; O2SAT 96
[2022-10-11 08:21] VITALS: BP 113/56; PULSE 62
[2022-10-11] MEDS: PANTOPRAZOLE DR 40 MG TABLET PO (08:21)
[2022-10-11] MEDS: lisinopriL 20 MG TABLET 40 MG PO (08:21)
[2022-10-11] MEDS: FOLIC ACID 1 MG TABLET PO (08:22)
[2022-10-11] MEDS: VIT C/E/ZN/COPPR/LUTEIN/ZEAXAN CAPSULE 1 CAP PO (08:22)
[2022-10-11] MEDS: DULOXETINE 20 MG CAPSULE 60 MG PO (08:23)
[2022-10-11] MEDS: FUROSEMIDE 40 MG TABLET PO (08:24)
--- NOTE | 2022-10-11 09:02 | PT.IPTN ---
Current Diagnoses Unilateral primary osteoarthritis, right knee (10/10/22) Surgery Performed Operation Date: 10/10/22 07:45 Actual Procedures p Total Knee Arthroplasty(Right) - Margo Adams MD Physical Therapy Treatment Note M2 PT-IP Current Condition Start: 10/10/22 17:48 Freq: NEEDED Status: Active Protocol: Document 10/11/22 08:45 SP (Rec: 10/11/22 12:17 SP [id number]) Physical Therapy Current Condition Current Condition Evaluation Date 10/10/22 Treatment Diagnosis R TKA Onset Date 10/10/22 M3 PT-IP Subjective Start: 10/10/22 17:48 Freq: NEEDED Status: Active Protocol: Document 10/11/22 08:45 SP (Rec: 10/11/22 12:17 SP [id number]) Subjective Physical Therapy Visit Type Type Treatment Note Visit Start Time 08:45 Visit Stop Time 09:02 Total Visit Minutes 17 Notes VItals pre mob: BP 132/73 HR 74 SaO2 99% on RA Number of PROCESSOR INSPECTOR Visits 1 Physical Therapy Visit Comments Patient Comments Pt agreeable to mobilizing with therapy. Patient Goals Return home with spouse assist her as needed. States set up with outpt therapy next week. Therapy Pain Assessment Pain When Pain Assessed During Weight Bearing Pain Present Pain Present Denied Pain M4 PT-IP Mobility and Gait Start: 10/10/22 17:48 Freq: NEEDED Status: Active Protocol: Document 10/11/22 08:45 SP (Rec: 10/11/22 12:17 SP [id number]) PT-Bed Mobility Assessment Supine to Sit Supine to Sit Independent Scooting Scooting to Edge of Bed Independent PT-Transfer Assessment Sit to and From Stand Sit to and from Stand Standby Assistance Equipment Transfer Assistive Device Gait Belt,Front Wheeled Walker Orthotic/Prosthetic Devices or Brace: No Transfers Transfer Destination Chair Transfer Technique pt ambulated using FWW Transfer Ability Level of Assist Standby Assistance Comments Mobility Comments Pt completed warm up pre gait post op ex: QS, AP, knee flexion AROM RLE approx 70 deg flexion, knows can use gait belt on R foot for assist ROM. sup>sit, scoot EOB I. STS SBA w/ FWW good hand placement mod support BUE WB on bed. Gait step to few steps then receiprocal patterning around room to hallwy down to stairs, completed stairs and back to room chair sBA. Pt is ok to return home with spouse assist her when medically cleared. Gait Assessment Gait Gait Assistance Required: Standby Assistance Distance (Feet) 160 Able to Maintain Weight Bearing Status Yes During Gait Assistive Devices Assistive Device Gait Belt,Front Wheeled Walker Gait Deviations General Gait Pattern Antalgic,Decreased Stride Length Factors Limiting Gait Function Factors Limiting Gait Function Decreased Strength,Limited Range of Motion Comments Gait Comments Occasional cues for R knee flexion and heel to for normalizing gait phas patterning. Stair Climbing Assessment Evaluation Level of Assist On Stairs Standby Assistance Devices Stair Climbing Assistive Devices Right Railing Technique/Endurance Stair Climbing Direction Ascend and Descend Stair Climbing Technique Step to Step Number of Steps Climbed 3 Stair Climbing Set # Repetitions (reps) 1 Comments Stair Climbing Comments BUE on R HR, step to proper patterning LLE lead ascend/RLE descend lead, occasional cue for facing step for ease use BUE on R HR. PT-Balance Assessment Sitting Balance and Reactions Static Sitting Balance Ability Normal Dynamic Sitting Balance Ability Normal Standing Balance and Reactions Static Standing Balance Ability Good Dynamic Standing Balance Ability Good Device Used fwW M5 PT-IP Objective Assessments Start: 10/10/22 17:48 Freq: NEEDED Status: Active Protocol: Document 10/10/22 17:08 DCW (Rec: 10/10/22 17:59 DCW [id number]) Orientation Orientation/Cognition Level of Alertness Alert Orientation Name,Birthday,Month,Date,Year, Place,Situation Language Function Ability No Deficits Noted Safety Awareness Understands Safety Issues Memory Description No Deficits Noted Gross Range of Motion Lower Extremity ROM Assessment Right Impaired Impairments in sitting, right knee AROM 10 ?-86? Strength Lower Extremity Strength Assessment Right Impaired Muscle Tone Comments Muscle Tone Comments Pt able to properly contract quad upon command M6 PT-IP Treatment Start: 10/10/22 17:48 Freq: NEEDED Status: Active Protocol: Document 10/11/22 08:45 SP (Rec: 10/11/22 12:17 SP [id number]) Physical Therapy Treatment Exercises Exercises Ankle Pumps,Quad Sets,Heel Slides,Seated Knee Flexion/ Extension Knee ROM Measurement approx 70 deg flexion AROM R knee Education Education Provided Post-Op Packet,Safety Other Treatments Other Treatment Performed Discussed not positioning pillow under R knee for allowance extension. M7 PT-IP Assessment and Plan Start: 10/10/22 17:48 Freq: NEEDED Status: Active Protocol: Document 10/11/22 08:45 SP (Rec: 10/11/22 12:17 SP [id number]) PT Summary Assessment and Plan Potential Rehabilitation Potential Excellent Status of Condition at Evaluation Stable Summary Impairments Pain,ROM,Strength,Gait, Activity Tolerance Progress Towards Goals Progressing Toward Goals,Slow Progress due to Activity Tolerance Assessment Summary Pt SBA during all mobility using FWW, completed 3 step stair mgt R HR SBA. Ableto return home when medically cleared with spouse, is [facility] therapy. Goals Bed Mobility Goal Independent Transfer Goal Independent Gait Goal Independent Gait Distance 200' Other Goals Ascend/descend 3 steps using R ascending rail Days to Meet Goals 2 Frequency of Treatment Frequency Of Treatment Twice a Day Treatment Plan Physical Therapy Treatment Plan Gait Training,Therapeutic Exercise,Balance Retraining, Post Op Education,Discharge Planning Other Recommendations and Next Treatment recheck ROM, post op ex sets/ Focus reps, further distance gait Recommendations To Nursing Amount of Assist Needed Standby Assistance Discharge Recommendations PT Discharge Recommendations Home with Assistance, Outpatient PT Transportation Needs at Discharge Private Vehicle
--- NOTE | 2022-10-11 11:37 | PM.DS.1 ---
History of Present Illness History of Present Illness Date Patient Seen: 10/11/22 Time Patient Seen: 11:37 Chief complaint: Right TKA Narrative: Patient is sitting up in her chair this with no complaints of pain. She has worked with physical therapy and states it went well. No chest pain, shortness of breath, numbness or tingling in the extremities. She would like to go home. Discharge Providers Provider Discharge Date: 10/11/22 Primary care physician: Jordyn Montemayor MD Consults: 10/01/22 13:00 Consult to Anesthesiology Routine Comment: Consulting Provider: Anesthesiologist Reason for consultation: Surgeon requested re: Multiple medical problems 10/10/22 06:29 Consult to Anesthesiology Routine Comment: Consulting Provider: Anesthesiologist Reason for consultation: Regional block for post operative pain control 10/10/22 10:49 Consult to Discharge Planning Routine Comment: Consult to Physical Therapy Evaluate & Treat Comment: Physician Instructions: postop TKA protocol Discharge provider: Ruthann French PA-C Summary Hospital Course Discharge Diagnosis: Status post right total knee arthroplasty Hospital Course: Operative Date/Time/Diagnoses Date of procedure: 10/10/22 Time of procedure: 07:55 Pre-op diagnosis: right knee OA Post-op diagnosis: same Procedure & Clinicians Procedure: Right total knee arthroplasty Same procedure as scheduled: Yes Indications: The patient has had progressively worsening right knee pain with radiographic changes consistent with arthritis. Non-operative management has failed and the patient has requested total knee replacement. The risks, benefits and alternatives to surgery were discussed with the patient prior to proceeding. Risks discussed included, but were not limited to, failure to relieve pain, stiffness, infection, nerve damage, deep venous thrombosis, pulmonary embolism, stroke, coma, heart attack, permanent paralysis and , as well as the potential need for eventual revision of the prosthetic. Surgeon: Margo Adams Satellite Television Installer: Ryan Robison Click Yes if Unassisted: Yes Anesthesia Type: Spinal Operative Notes Findings: Severe right hip osteoarthritis, adequate stability, adequate bone Closure Type: primary Specimen(s): none sent Prosthetic devices, grafts, tissues, transplants, or devices: Adams and nephew journey BCS 2 Adams and nephew size 5 femur, size 4 tibia, 35 x 7-1/2 mm patella, +9 poly Estimated Blood Loss (mL): 200 Blood products transfused: none Tourniquet time (min): 84 Status at Discharge Cognitive/behavioral status at discharge: oriented Functional status at discharge: uses cane/walker Overall status at discharge: patient is progressing back to baseline Exam Vital Signs (past 8 hours): - 10/11/22 05:00 10/11/22 08:21 10/11/22 08:16 Temperature 97.7 F 97.8 F Pulse Rate 67 62 71 Respiratory Rate 18 16 Blood Pressure 135/56 L 113/56 L 113/55 L Pulse Oximetry 97 96 Oxygen Flow Rate 0 0 Oxygen Delivery Method Room Air Oxygen Flow Rate 0 Objective Labs 10/11/22 06:10 Labs: Laboratory Results - last 24 hr 10/11/22 06:10 Hgb 9.6 L Hct 28.9 L PFSH Medical History Acute respiratory failure with hypoxia COPD (chronic obstructive pulmonary disease) (2015) COVID-19 virus infection (05/2021) CTS (carpal tunnel syndrome) (1988) Fractures (2014) GI bleed (2021) Glaucoma (2013) Hayfever (1999) Morbid (severe) obesity due to excess calories Osteoarthritis Pneumonia due to COVID-19 virus Pulmonary embolism (07/2021) Retinal detachment (2013) Surgical History (Updated 10/01/22 @ 09:51 by Zoey Machado RN) Anesthesia History of carpal tunnel repair (1989) History of hip replacement (2003) History of hip replacement (2006) History of hip replacement (2010) History of spinal surgery (2015) History of spinal surgery (2005) History of total left knee replacement (01/10/22) Hx of bilateral cataract extraction Status post knee surgery (2003) Status post laminectomy (2005) Family History Brother No problems noted. Brother No problems noted. Father Lung cancer Grandfather No problems noted. Grandmother Heart attack Mother Lung cancer Grandfather No problems noted. Grandmother Heart attack Social History household members: children Smoking Status: Former smoker alcohol intake: current Discharge Assessment & Plan Assessment and Plan Assessment: Patient is progressing as expected after right total knee arthroplasty. Plan of Treatment: Plan to discharge to home today. Patient has worked with physical therapy and is cleared. Patient received postoperative medications at her preoperative appointment. Follow up as scheduled. Discharge Plan Discharge Plan Patient Disposition: Home Discharge orders & Medications Discharge Orders: Discharge (Order); Ordered 10/11/22 Ordered By: Ruthann French Prescriptions: Continued atorvastatin [Lipitor] 10 mg tablet 10 mg PO HS Qty: 90 3RF Hold Instructions: taking Anti-fungal medication folic acid 1 mg tablet 1 mg PO DAILY Qty: 90 3RF pantoprazole 40 mg tablet,delayed release (DR/EC) 40 mg PO DAILY Qty: 90 3RF duloxetine 20 mg capsule,delayed release(DR/EC) 60 mg PO QAM Qty: 270 3RF lisinopril 40 mg tablet 40 mg PO QDAY Qty: 90 2RF furosemide 40 mg tablet See Rx Instructions .ROUTE .COMPLEX Qty: 30 2RF Dose Instruction: Take 1 tablet (40 mg) by mouth daily Rx Instructions: Take 1 tablet (40 mg) by mouth daily (DME) Disabled Parking Qty: 1 0RF Dose Instruction: As directed Rx Instructions: I find this patient to be medically disabled and qualified for Disabled Parking as indicated, and signed, on the Accompanying Disabled Parking Application for Individuals methotrexate sodium 2.5 mg Tablet 20 mg PO QWEEK Patient Comments: 10mg bid on Friday PreserVision AREDS-2 250-90-40-1 mg Capsule 1 tab PO QAM acetaminophen 325 mg Tablet 650 mg PO Q6HR PRN (Reason: fever or pain) Qty: 240 0RF gabapentin 800 mg tablet 800 mg PO BEDTIME PRN (Reason: Pain) Follow up/Referrals: Jordyn Montemayor MD [Primary Care Provider] - Margo Adams MD [Physician] - As previously scheduled (Follow up w/ Anne Marie French PA-C, on 10/25/2022 @ 3:00 pm at [facility] in [place].) Diet/Activity/Treatments Diet: Diet as Tolerated Activity: Walk frequently! Cold/Heat Therapy: Ice to knee as needed for pain. Skin/Wound/Dressing Care Report to your healthcare provider any signs of infection, such as:: chills, fever, night sweats, unusual drainage and unusual redness Dressing: May remove ANASTACIA wrap and shower on 10/13/2022. Visit Report/Discharge Packet Instructions: DI for Knee Replacement Stand Alone Forms: Patient Portal/API Discharge Data Primary Care Provider: Jordyn Montemayor Attending Provider: Margo Adams VTE Deep Vein Thrombosis/Pulmonary Embolism Present on Admission: No
[2022-10-11 11:43] VITALS: BP 150/64; PULSE 67; RESP 16; TEMP 36.3; O2SAT 97
[2022-10-11] MEDS: OXYCODONE IR 5 MG TABLET PO (12:09)
--- NOTE | 2022-10-11 12:16 | PC.NURSE ---
Addendum entered by Jillian Ramos R.N. 10/11/22 13:56: Pt transportation arrived. [employer] dsg chaned to right knee as per MD orders. Pt escorted by staff to waiting vehicle. D/C in stable post op status. Original Note: Pt A/O, Stable post op course. Dsg to right knee CDi. D/C orders received. Instructions given w/understanding. HL D/C intact. Awaiting transportation.
--- NOTE | 2022-10-11 12:35 | CM.DANOTE ---
DCP: Case received, EMR reviewed and met with patient. Introduced self and role. Was able to obtain information regarding patient's baseline activity level at home prior to her surgery. DCP assesment completed with information currently available. Patient is an 81 year old female who admitted yesterday morning to the care of the orthopedic team. PCP: Dr. Montemayor. Payer: confirmed: [facility] Advantage. Patient came to the hospital for a surgical procedure. Patient had right total knee arthroplasty. Patient has history of right knee osteoarthritis. Met with patient in her room. She is alert and oriented, confirmed that she resides here in [place] with daughter. At her baseline, she drives, and has a four wheel walker and cane. She has worked with P.T. She will pursue outpatient P.T. P: Patient has discharge orders for home today. Sylwia Myrick RN/Staffing Associate Discharge Planning/Care Management CM Discharge Assessment Start: 10/11/22 12:33 Freq: Status: Active Protocol: Document 10/11/22 12:33 (Rec: 10/11/22 12:34 [id number]) Discharge Planning Assessment Assigned Home Health Manager Sylwia Myrick RN/Staffing Associate Advance Directives? No History Provided By Patient,Medical Record Prior Living Arrangements Other Household Members children Type of transporation used prior to Drives own vehicle admit Independent with ADL's Yes Is patient alert and oriented? Yes Needs Assistance With Home Chores / Shopping DME Already Rented / Owned FWW / Walker,Cane Barriers to Discharge No Discharge Plan Home Referrals Initiated None needed Whiteboard Updated in Patient Room with Yes name and ext. # of Home Health Manager Review Status In Process Next Review Type Continued Stay Review Pre-Anesthesia Assessment Start: 10/01/22 09:40 Freq: Status: Active Protocol: Document 10/01/22 09:40 CAB (Rec: 10/01/22 10:21 CAB [id number]) Pre-Anesthesia Assessment Patient Information Reviewed Via Phone Assessment Diagnostic Results BMP/CMP,CBC,EKG,Urinalysis Comment Labs/EKG @ 08/21/22 Primary Care Provider Jordyn Montemayor Comment PCP pre-op clearance 09/20/22 in [facility] Medical Clearance Received Yes Seen Specialist in Last 12 Months Yes Specialist Seen ENT,Orthopedist,Other Comment RA Primary Language Divehi Preferred Language Divehi Body Team Member Required No Height 5 ft 6 in Weight 200 lb Body Mass Index (BMI) 32.3 Hearing Ability Normal Visual Impairment No Limitations Visual Assist None Dentition Type Full- Upper & Lower Barriers to Learning None Hx Anesthesia Reactions Yes: PONV Hx Family Anesthesia Reaction No Hx Malignant Hyperthermia No Hx Blood Transfusions No Anesthesia Review Requested Yes: Surgeon requested re: Multiple medical problems Control And Recovery Special Tactics No alcohol intake current alcohol intake frequency holidays/special occasions only Smoking Status Former smoker Tobacco type cigarettes how long ago did patient quit smoking Quit approx 4 years ago Substance Use Type does not use Pain Present Pain Reported Musculoskeletal Symptoms Abnormal Gait,Difficulty Walking,Joint Pain History of Falling (Recent or History of No ) Patient is completely paralyzed or No completely immobile Prosthesis or Orthotic Device Front Wheel Walker Mental Status Oriented to own ability Is patient on oxygen? No Does patient have PICKARD/SOB Yes: With walking long distances Hx Sleep Apnea No Currently Taking a Beta Elena No Can You Climb a Flight of Stairs Without No SOB Hx Chest Pain No Hx SOB Yes: With walking long distances Hx Syncope or Dizziness No Anti-Coagulant Therapy No Has a Clinical Technologist No Cardiac Testing No: Echo @ [facility] 07/16/22 Hx Pacemaker/ICD No Pacemaker Rep Required? No Diet Type At Home Regular Dysphagia No Gastrointestinal Symptoms None Bladder Pattern Incontinent Urinary Catheter Present No Hx Urinary Self Catheterization No Diabetes No HgbA1C 5.3 Date 08/21/22 Patient No Lactating No Presence of External or Internal Medical Yes: Bilat IOLs, lumbar Devices hardware, bilat hip prosthesis , left knee Received a COVID vaccine? Yes: Moderna x2 Received all doses? Yes Marital Status / Lives With children Current Living Arrangements House Number of Floors (Floors) One Floor Support System Child/Children Does the Patient Have Assistance After Yes: Lives w/daughter who will Surgery care for pt @ [place] Patient Discharge Plan Description Return Home Comment Pt advised overnight length of stay per surgeon Feels Safe in Current Environment Yes Been Physically Hurt or Threatened By a No Person in Current Environment Do you have thoughts of harming yourself None or others? Are you currently considering suicide? No Do you have a plan to hurt yourself or No Plan others? Do You Have Any Spiritual Beliefs That No May Affect Your HC Choices? Do You Have Any Cultural Practices That No May Affect Your HC Choices? Comment Rastafari Who Can We Speak to About Patient's Care Family, friends Identifying Code for Release of Patient Declines to issue Information Health Care Proxy/Next of Kin Leni (daughter) Health Care Proxy Emergency Contact Name Leni (daughter) Emergency Contact Advance Directives? No Power of Painter Tumbling Barrel No PAC Instructions Do not shave/clip surgical site,Durable medical equipment ,Medications to take/avoid, Nasal antibiotic,No ETOH/ petroleum product on skin DOS, NPO,Pre-surgical wash,Sensory aids,Sturdy shoes/comfortable clothes,Do not bring valuables and remove jewelry
== END 2022-10-11 13:50 | disposition home or self-care (01) ==
LOC: OR 06:31 → AC 06:32
PROVIDERS: PCP Family Medicine; Referring Provider Family Medicine; Visit Provider Orthopaedic Surgery
PROC: 0SRC0JZ Replacement of Right Knee Joint with Synthetic Substitute, Open Approach (ICD-10-PCS; CPT 27447; principal; 2022-10-10 07:45)
DX: M17.11 Unilateral primary osteoarthritis, right knee (principal); J44.9 Chronic obstructive pulmonary disease, unspecified
CPT/HCPCS: 27447; 73560; 85014; 85018; 87635; 97110; 97116; 97161; C1776; C9803; C9290; J0171; J0690; J1100; J2405; J2704; J3010

== ENCOUNTER → 2022-10-28 11:58 | Outpatient (CLI) | payer OTHER, SELFPAY ==
[2022-10-10 10:50] VITALS: BMI 32.3
--- NOTE | 2022-10-28 | DI.US.S_ITS ---
PROCEDURE: US PERIPH VENOUS LOW EXTREM RT INDICATIONS: SEVERE PAIN. STATUS POST TKA. TECHNIQUE: Real-time imaging, as well as color and pulse Doppler interrogation, were performed of the lower extremity deep veins from the inguinal ligament to the popliteal fossa. COMPARISON: None. FINDINGS: The common femoral, femoral and popliteal veins are normally compressible, and free of intraluminal thrombus. Color and pulse Doppler demonstrate normal phasic intraluminal flow. There is normal augmentation response to distal compression maneuver. IMPRESSION: No right lower extremity DVT. Dictated by: Cosmo Angeles M.D. on 10/28/2022 at 13:30 Approved by: Cosmo Angeles M.D. on 10/28/2022 at 13:30
== END ==
PROVIDERS: PCP Family Medicine; Referring Provider Orthopaedic Surgery; Visit Provider Orthopaedic Surgery
DX: M79.661 Pain in right lower leg (principal); Z96.659 Presence of unspecified artificial knee joint
CPT/HCPCS: 93971

== ENCOUNTER → 2023-07-14 13:11 | Outpatient (CLI) | payer OTHER, SELFPAY ==
[2022-10-10 10:50] VITALS: BMI 32.3
[2023-07-14 14:51] LABS: Add Manual Diff / Slide Review NO; Basophils Absolute Auto 0 /uL (0-100); Basophils Percent Auto 0.4 % (0-2); Eosinophils Absolute Auto 100 /uL (0-450); Eosinophils Percent Auto 1.4 % (2-4); Hematocrit 38.9 % (36-46); Hemoglobin 12.7 g/dL (12.0-16.0); Lymphocytes Absolute Auto 1200 /uL (1100-4500); Lymphocytes Percent Auto 18.4 % (25-40); Mean Corpuscular HGB Conc 32.5 % (30-36); Mean Corpuscular Hemoglobin 28.7 PG (26-34); Monocytes Absolute Auto 300 /uL (0-900); Neutrophils Absolute Auto 5100 /uL (1500-7000); Neutrophils Percent Auto 75.8 % (50-75); Platelet Count 265 X10^3/uL (150-400); Red Blood Cell Count 4.42 X10^6/uL (4.0-5.2); Red Cell Distribution Width 18.2 % (11.6-14.8); White Blood Cell Count 6.7 X10^3/uL (4.5-11.0)
[2023-07-14 15:25] LABS: Alanine Aminotransferase 22 IU/L (<35); Albumin Globulin Ratio 1.3 (1.0-2.8); Alkaline Phosphatase 92 U/L (38-126); Aspartate Aminotransferase 34 IU/L (14-36); BUN Creatinine Ratio 20.2 (6-22); Bilirubin Total 0.7 mg/dL (0.2-1.3); Blood Urea Nitrogen 19 mg/dL (7-17); Calcium 10.2 mg/dL (8.4-10.2); Carbon Dioxide 28 mmol/L (22-32); Chloride 103 mmol/L (98-107); Estimated Glomerular Filt Rate > 60 mL/min (>60); Glucose 148 mg/dL (80-110); HEMOLYSIS < 15 (0-50); Sodium 138 mmol/L (137-145)
[2023-07-14 17:01] LABS: Hemoglobin A1C% w Est Avg Glu 5.5 % (4.0-6.0)
== END ==
LOC: LAB 13:13
PROVIDERS: PCP Family Medicine; Referring Provider Family Medicine; Visit Provider Family Medicine
DX: R06.02 Shortness of breath (principal); D50.9 Iron deficiency anemia, unspecified; R73.03 Prediabetes; R53.83 Other fatigue
CPT/HCPCS: 36415; 80053; 83036; 85025